=== PATIENT | male | born 1950 | race Caucasian/White ===

== ENCOUNTER 2017-05-06 21:25 | Inpatient (IN) ==
[2017-05-06] MEDS ORDERED: LACTATED RINGERS 1,000 ML IV STA (22:00)
[2017-05-06] MEDS ORDERED: HYDROmorphone 2 MG/1 ML VIAL IV STA (22:00)
[2017-05-06] MEDS ORDERED: ONDANSETRON 4 MG/2 ML VIAL IV STA (22:00)
[2017-05-06] MEDS ORDERED: ONDANSETRON 4 MG/2 ML VIAL ONE (22:05)
[2017-05-06] MEDS ORDERED: HYDROmorphone 2 MG/1 ML VIAL ONE (22:05)
[2017-05-06 22:45] LABS: Basophils % 0.2 % (0.0-0.8); Eosinophils % 0.1 % (0.00-10.9); Hematocrit 45.2 VOL% (42.0-52.0); Hemoglobin 14.8 GM/DL (14.0-18.0); Immature Granulocytes % 0.7 %; Immature Granulocytes Absolute 0.13 #; Lymphocytes # 0.8 10*3/uL (1.4-4.0); Lymphocytes % 4.7 % (21.2-54.2); Mean Corpuscular HGB Conc 32.7 GM/DL (32-36); Mean Corpuscular Hemoglobin 30 PG (27-34); Mean Corpuscular Volume 90.2 FL (87-102); Mean Platelet Volume 12.3 FL (9.6-12.0); Monocytes # 0.8 10*3/uL (0.11-0.8); Monocytes % 4.3 % (1.7-12.7); Neutrophils # 15.8 10*3/uL (1.4-7.4); Platelet Count 108 T/CUMM (130-400); Red Blood Count 5.01 MC/CUMM (3.8-5.5); Red Cell Distribution Width 12.8 % (9.3-17.3); White Blood Count 17.5 T/CUMM (4-12)
[2017-05-06] MEDS ORDERED: SODIUM CHLORIDE 0.9% 1,000 ML IV STA (22:50)
[2017-05-06 22:56] LABS: PT Patient Result 10.1 SECS; Partial Thromboplastin Time 23.1 SECS (0-40)
[2017-05-06 23:01] LABS: ABG HCO3 21.5 MMOL/L (20-26); ABG Oxygen Saturation 96.6 % (95-100); ABG PH 7.383 (7.35-7.45); ABG PO2 90.5 MM HG (80-95); ABG TCO2 22.7 MMOL/L (23-27); Allen Test Positive
[2017-05-06 23:12] LABS: Alanine Aminotransferase 35 U/L (16-61); Alkaline Phosphatase 116 U/L (45-117); Aspartate Amino Transferase 28 U/L (0-37); Calcium 9.2 MG/DL (8.5-10.1)
[2017-05-06 23:13] LABS: Amylase 47 U/L (25-115); Blood Urea Nitrogen 19 MG/DL (7-18); Glucose 356 MG/DL (74-106); Potassium 4.5 MMOL/L (3.5-5.1); Sodium 136 MMOL/L (136-145)
[2017-05-06] MEDS ORDERED: ACETAMINOPHEN 325 MG TABLET PO PRN (23:19)
[2017-05-06] MEDS ORDERED: DEXTROSE 50% 25 GM/50 ML VIAL IV PRN (23:19)
[2017-05-06] MEDS ORDERED: GLUCAGON 1 MG VIAL IM PRN (23:19)
[2017-05-07] MEDS ORDERED: SODIUM CHLORIDE 0.9% 1,000 ML IV STA (00:21)
[2017-05-07] MEDS: SODIUM CHLORIDE 0.9% 1,000 ML IV SCH ×3 (00:38→09:09)
[2017-05-07 02:02] LABS: Apearance,Urine CLEAR (Clear); Bilirubin,Urine Negative (Negative); Blood, Urine Negative (Negative); Glucose,Urine (UA) >=500 mg/dL (Negative); Ketones,Urine 5 mg/dL (Negative); Nitrite,Urine Negative (Negative); Protein,Urine Negative; RBC,Urine <1 /HPF (0-4); Urine Color Straw (Yellow); Urine Specific Gravity 1.029 (1.001-1.035); Urine Urobilinogen < 2.0 EU/DL (0.2-1.0); WBC,Urine <1 /HPF (0-6)
[2017-05-07 02:12] LABS: Barbiturates Screen,Urine Negative (Negative); Benzodiazepines Screen,Urine Negative (Negative); Cannabinoid Screen,Urine Negative (Negative); Opiate Screen,Urine Positive (Negative); Phencyclidine Screen,Urine Negative (Negative)
[2017-05-07] MEDS: HYDROmorphone 2 MG/1 ML VIAL IV PRN ×2 (03:15→09:06)
[2017-05-07 07:58] LABS: Basophils % 0.2 % (0.0-0.8); Eosinophils % 0.1 % (0.00-10.9); Hematocrit 40.7 VOL% (42.0-52.0); Hemoglobin 13.9 GM/DL (14.0-18.0); Immature Granulocytes % 0.4 %; Immature Granulocytes Absolute 0.04 #; Lymphocytes # 1.2 10*3/uL (1.4-4.0); Mean Corpuscular HGB Conc 34.2 GM/DL (32-36); Mean Corpuscular Hemoglobin 30 PG (27-34); Mean Corpuscular Volume 88.5 FL (87-102); Mean Platelet Volume 12.2 FL (9.6-12.0); Monocytes # 0.8 10*3/uL (0.11-0.8); Monocytes % 7.1 % (1.7-12.7); Neutrophils # 8.9 10*3/uL (1.4-7.4); Neutrophils % 81.2 % (38.7-73.9); Platelet Count 202 T/CUMM (130-400); Red Cell Distribution Width 13.1 % (9.3-17.3); White Blood Count 10.9 T/CUMM (4-12)
[2017-05-07] MEDS: INSULIN LISPRO 100 UNIT/ML SUBCUT SCH ×4 (08:09→21:16)
[2017-05-07] MEDS: PANTOPRAZOLE 40 MG TABLET PO SCH (08:09)
[2017-05-07] MEDS: ONDANSETRON 4 MG/2 ML VIAL IV PRN ×2 (09:08→23:10)
[2017-05-07] MEDS: INSULIN NPH/REGULAR 70/30 100 UNIT/ML SUBCUT SCH (17:13)
[2017-05-07] MEDS: ASPIRIN CHEW 81 MG TABLET PO SCH ×2 (21:16→21:21)
[2017-05-07] MEDS: LISINOPRIL 10 MG TABLET PO SCH (21:16)
[2017-05-08] MEDS: HYDROmorphone 2 MG/1 ML VIAL IV PRN ×2 (00:45→21:18)
[2017-05-08 03:36] LABS: Osmolality,Calculated 283.5 MOS/KG (273-304); Potassium 4.7 MMOL/L (3.5-5.1)
[2017-05-08] MEDS: INSULIN LISPRO 100 UNIT/ML SUBCUT SCH ×4 (08:32→21:09)
[2017-05-08] MEDS: INSULIN NPH/REGULAR 70/30 100 UNIT/ML SUBCUT SCH ×2 (08:32→16:08)
[2017-05-08] MEDS: PANTOPRAZOLE 40 MG TABLET PO SCH ×2 (08:50→19:50)
[2017-05-08] MEDS: ONDANSETRON 4 MG/2 ML VIAL IV PRN ×2 (09:02→18:02)
[2017-05-08] MEDS ORDERED: MAGNESIUM HYDROXIDE SUSP 30 ML UDCUP PO ONE (11:18)
[2017-05-08] MEDS ORDERED: INSULIN NPH/REGULAR 70/30 100 UNIT/ML SUBCUT SCH (11:30)
[2017-05-08 11:54] LABS: Basophils % 0.2 % (0.0-0.8); Eosinophils % 0.1 % (0.00-10.9); Hematocrit 44.2 VOL% (42.0-52.0); Immature Granulocytes Absolute 0.16 #; Lymphocytes # 0.9 10*3/uL (1.4-4.0); Lymphocytes % 5.6 % (21.2-54.2); Mean Corpuscular HGB Conc 31.7 GM/DL (32-36); Mean Corpuscular Hemoglobin 30 PG (27-34); Mean Corpuscular Volume 93.4 FL (87-102); Mean Platelet Volume 12.6 FL (9.6-12.0); Monocytes # 0.7 10*3/uL (0.11-0.8); Monocytes % 4.6 % (1.7-12.7); Neutrophils # 13.6 10*3/uL (1.4-7.4); Neutrophils % 88.5 % (38.7-73.9); Platelet Count 212 T/CUMM (130-400); Red Blood Count 4.73 MC/CUMM (3.8-5.5); Red Cell Distribution Width 12.9 % (9.3-17.3); White Blood Count 15.4 T/CUMM (4-12)
[2017-05-08 12:13] LABS: Calcium 8.4 MG/DL (8.5-10.1); Potassium 5.1 MMOL/L (3.5-5.1)
[2017-05-08] MEDS: LISINOPRIL 10 MG TABLET PO SCH (21:10)
[2017-05-08] MEDS: ASPIRIN CHEW 81 MG TABLET PO SCH (21:10)
[2017-05-09 08:33] LABS: Basophils % 0.1 % (0.0-0.8); Hematocrit 47.5 VOL% (42.0-52.0); Hemoglobin 14.9 GM/DL (14.0-18.0); Immature Granulocytes % 0.8 %; Immature Granulocytes Absolute 0.15 #; Lymphocytes # 0.5 10*3/uL (1.4-4.0); Lymphocytes % 2.5 % (21.2-54.2); Mean Corpuscular HGB Conc 31.4 GM/DL (32-36); Mean Corpuscular Hemoglobin 29 PG (27-34); Mean Corpuscular Volume 93.5 FL (87-102); Mean Platelet Volume 12.2 FL (9.6-12.0); Monocytes # 0.7 10*3/uL (0.11-0.8); Monocytes % 3.9 % (1.7-12.7); Neutrophils # 17.6 10*3/uL (1.4-7.4); Neutrophils % 92.7 % (38.7-73.9); Platelet Count 297 T/CUMM (130-400); Red Blood Count 5.08 MC/CUMM (3.8-5.5); Red Cell Distribution Width 13.1 % (9.3-17.3)
[2017-05-09] MEDS: PANTOPRAZOLE 40 MG TABLET PO SCH (08:38)
[2017-05-09] MEDS: INSULIN LISPRO 100 UNIT/ML SUBCUT SCH ×5 (08:38→23:51)
[2017-05-09] MEDS: INSULIN NPH/REGULAR 70/30 100 UNIT/ML SUBCUT SCH (08:38)
[2017-05-09 09:20] LABS: Albumin 3.8 G/DL (3.4-5.0); Bilirubin,Total 0.7 MG/DL (0.2-1.0); Calcium 9.1 MG/DL (8.5-10.1); Osmolality,Calculated 296.8 MOS/KG (273-304); Potassium 5.8 MMOL/L (3.5-5.1); Total Protein 7.3 G/DL (6.4-8.3)
[2017-05-09] MEDS ORDERED: MEPERIDINE 50 MG/1 ML VIAL IV PRN (11:04)
[2017-05-09] MEDS ORDERED: MEPERIDINE 25 MG/1 ML VIAL IV PRN (11:04)
[2017-05-09] MEDS ORDERED: PROMETHAZINE 25 MG/1 ML VIAL IM PRN (11:08)
[2017-05-09] MEDS ORDERED: ONDANSETRON 4 MG/2 ML VIAL IV PRN ×2 (11:08)
[2017-05-09] MEDS: ONDANSETRON 4 MG/2 ML VIAL IV PRN (11:11)
[2017-05-09] MEDS: HYDROmorphone 2 MG/1 ML VIAL IV PRN (11:11)
[2017-05-09] MEDS: SODIUM CHLORIDE 0.9% 1,000 ML IV SCH ×2 (11:14→20:09)
[2017-05-09] MEDS ORDERED: SODIUM CHLORIDE 0.9% 1,000 ML IV ONE ×2 (11:36→14:32)
[2017-05-09] MEDS ORDERED: METOCLOPRAMIDE 10 MG/2 ML VIAL IV PRN (13:16)
[2017-05-09] MEDS: cefTRIAXone 1,000 MG in SYRINGE 1 EACH IV SCH (13:28)
[2017-05-09] MEDS ORDERED: INSULIN REGULAR 100 UNIT/ML IV ONE (14:33)
[2017-05-09] MEDS: ALBUTEROL/IPRATROPIUM 3 ML NEB RESP TX SCH ×2 (14:43→20:25)
[2017-05-09] MEDS: AZITHROMYCIN INJ 500 MG in SODIUM CHLORIDE 0.9% 250 ML IV SCH (14:50)
[2017-05-09 16:52] LABS: Calcium 8.5 MG/DL (8.5-10.1); Osmolality,Calculated 299.1 MOS/KG (273-304); Potassium 4.7 MMOL/L (3.5-5.1)
[2017-05-09] MEDS: oxyCODONE/ACETAMINOPHEN 5-325 MG TABLET PO PRN ×2 (17:54→23:47)
[2017-05-09] MEDS: ASPIRIN CHEW 81 MG TABLET PO SCH (20:35)
[2017-05-10] MEDS: ALBUTEROL/IPRATROPIUM 3 ML NEB RESP TX SCH ×6 (00:45→19:10)
[2017-05-10] MEDS: SODIUM CHLORIDE 0.9% 1,000 ML IV SCH ×4 (02:16→23:32)
[2017-05-10] MEDS: INSULIN LISPRO 100 UNIT/ML SUBCUT SCH ×5 (05:27→20:38)
[2017-05-10 06:52] LABS: Basophils % 0.2 % (0.0-0.8); Eosinophils % 0.1 % (0.00-10.9); Hematocrit 39.1 VOL% (42.0-52.0); Hemoglobin 12.6 GM/DL (14.0-18.0); Immature Granulocytes % 0.5 %; Immature Granulocytes Absolute 0.06 #; Lymphocytes # 1.1 10*3/uL (1.4-4.0); Lymphocytes % 10.3 % (21.2-54.2); Mean Corpuscular HGB Conc 32.2 GM/DL (32-36); Mean Corpuscular Hemoglobin 30 PG (27-34); Mean Corpuscular Volume 93.5 FL (87-102); Monocytes # 0.8 10*3/uL (0.11-0.8); Monocytes % 6.8 % (1.7-12.7); Neutrophils # 9.1 10*3/uL (1.4-7.4); Neutrophils % 82.1 % (38.7-73.9); Platelet Count 229 T/CUMM (130-400); Red Blood Count 4.18 MC/CUMM (3.8-5.5); Red Cell Distribution Width 13.2 % (9.3-17.3); White Blood Count 11.1 T/CUMM (4-12)
[2017-05-10 07:24] LABS: Calcium 7.6 MG/DL (8.5-10.1); Osmolality,Calculated 291.1 MOS/KG (273-304)
[2017-05-10] MEDS: PANTOPRAZOLE 40 MG TABLET PO SCH (09:32)
[2017-05-10] MEDS: oxyCODONE/ACETAMINOPHEN 5-325 MG TABLET PO PRN ×3 (09:33→20:39)
[2017-05-10] MEDS: cefTRIAXone 1,000 MG in SYRINGE 1 EACH IV SCH (12:09)
[2017-05-10] MEDS: AZITHROMYCIN INJ 500 MG in SODIUM CHLORIDE 0.9% 250 ML IV SCH (14:26)
[2017-05-10] MEDS: ASPIRIN CHEW 81 MG TABLET PO SCH (20:39)
[2017-05-11] MEDS: ALBUTEROL/IPRATROPIUM 3 ML NEB RESP TX SCH ×7 (00:38→23:10)
[2017-05-11] MEDS: INSULIN LISPRO 100 UNIT/ML SUBCUT SCH ×6 (00:45→20:37)
[2017-05-11] MEDS: oxyCODONE/ACETAMINOPHEN 5-325 MG TABLET PO PRN ×3 (01:30→20:37)
[2017-05-11 05:13] LABS: Basophils % 0.4 % (0.0-0.8); Eosinophils # 0.1 10*3/uL (0.0-0.87); Eosinophils % 1.1 % (0.00-10.9); Hematocrit 38.5 VOL% (42.0-52.0); Hemoglobin 12.8 GM/DL (14.0-18.0); Immature Granulocytes % 0.5 %; Immature Granulocytes Absolute 0.04 #; Lymphocytes # 1.2 10*3/uL (1.4-4.0); Lymphocytes % 15.1 % (21.2-54.2); Mean Corpuscular HGB Conc 33.2 GM/DL (32-36); Mean Corpuscular Hemoglobin 30 PG (27-34); Mean Platelet Volume 11.7 FL (9.6-12.0); Monocytes # 0.7 10*3/uL (0.11-0.8); Monocytes % 8.9 % (1.7-12.7); Platelet Count 217 T/CUMM (130-400); Red Blood Count 4.28 MC/CUMM (3.8-5.5); Red Cell Distribution Width 13.1 % (9.3-17.3); White Blood Count 8.1 T/CUMM (4-12)
[2017-05-11 05:43] LABS: Calcium 7.5 MG/DL (8.5-10.1); Osmolality,Calculated 285.5 MOS/KG (273-304); Potassium 4.4 MMOL/L (3.5-5.1)
[2017-05-11] MEDS: SODIUM CHLORIDE 0.9% 1,000 ML IV SCH ×4 (07:35→20:37)
[2017-05-11] MEDS: PANTOPRAZOLE 40 MG TABLET PO SCH (09:48)
[2017-05-11] MEDS: AZITHROMYCIN 250 MG TABLET PO SCH (09:48)
[2017-05-11] MEDS: hydrALAZINE 20 MG/1 ML VIAL IV PRN (13:19)
[2017-05-11] MEDS: cefTRIAXone 1,000 MG in SYRINGE 1 EACH IV SCH (13:24)
[2017-05-11] MEDS ORDERED: INSULIN LISPRO PROTAMINE/LISPRO 75/25 100 UNIT/ML SUBCUT SCH (16:30)
[2017-05-11] MEDS: INSULIN NPH/REGULAR 70/30 100 UNIT/ML SUBCUT SCH (17:28)
[2017-05-11] MEDS: ASPIRIN CHEW 81 MG TABLET PO SCH (20:35)
[2017-05-11] MEDS: LISINOPRIL 10 MG TABLET PO SCH (20:35)
[2017-05-11] MEDS: LIDOCAINE 5% PATCH TRANSDERM SCH (20:39)
[2017-05-11] MEDS ORDERED: ENOXAPARIN 40 MG/0.4 ML SYRINGE SUBCUT SCH (21:00)
[2017-05-12] MEDS: INSULIN LISPRO 100 UNIT/ML SUBCUT SCH ×6 (00:22→20:58)
[2017-05-12] MEDS: hydrALAZINE 20 MG/1 ML VIAL IV PRN ×2 (00:41→09:31)
[2017-05-12] MEDS: ALBUTEROL/IPRATROPIUM 3 ML NEB RESP TX SCH ×6 (03:11→23:00)
[2017-05-12 06:23] LABS: Calcium 7.9 MG/DL (8.5-10.1); Osmolality,Calculated 283.5 MOS/KG (273-304); Potassium 4.6 MMOL/L (3.5-5.1)
[2017-05-12] MEDS ORDERED: INSULIN LISPRO PROTAMINE/LISPRO 75/25 100 UNIT/ML SUBCUT SCH (07:30)
[2017-05-12] MEDS: SODIUM CHLORIDE 0.9% 1,000 ML IV SCH ×3 (08:07→20:04)
[2017-05-12] MEDS: INSULIN NPH/REGULAR 70/30 100 UNIT/ML SUBCUT SCH ×2 (08:10→17:09)
[2017-05-12] MEDS: PANTOPRAZOLE 40 MG TABLET PO SCH (09:34)
[2017-05-12] MEDS: AZITHROMYCIN 250 MG TABLET PO SCH (09:34)
[2017-05-12] MEDS: LIDOCAINE 5% PATCH TRANSDERM SCH (09:34)
[2017-05-12 10:44] LABS: Troponin I Only 0.787 NG/ML (0.00-0.045)
[2017-05-12] MEDS ORDERED: MORPHINE 2 MG/1 ML SYRINGE IV ONE (11:11)
[2017-05-12] MEDS ORDERED: NITROGLYCERIN 2% OINT 1 INCH/GM PACK TOP ONE (11:11)
[2017-05-12] MEDS ORDERED: ASPIRIN CHEW 81 MG TABLET PO ONE (11:12)
[2017-05-12] MEDS ORDERED: ENOXAPARIN 100 MG/ML SYRINGE SUBCUT ONE (11:37)
[2017-05-12] MEDS ORDERED: DIAZEPAM 5 MG TABLET PO ONE (11:41)
[2017-05-12] MEDS ORDERED: POTASSIUM CHLORIDE RIDER 10 MEQ in PREMIX 1 EACH IV PRN ×2 (11:41→15:28)
[2017-05-12] MEDS ORDERED: MAGNESIUM SULF RIDER 2 GM in PREMIX 1 EACH IV PRN ×2 (11:41→15:28)
[2017-05-12] MEDS ORDERED: diphenhydrAMINE CAP 25 MG CAPSULE PO ONE (11:41)
[2017-05-12] MEDS ORDERED: CARVEDILOL 6.25 MG TABLET PO SCH ×2 (12:30→17:30)
[2017-05-12] MEDS: cefTRIAXone 1,000 MG in SYRINGE 1 EACH IV SCH (13:04)
[2017-05-12 13:51] LABS: Troponin I Only 0.594 NG/ML (0.00-0.045)
[2017-05-12] MEDS ORDERED: LIDOCAINE 1% 20 ML VIAL ONE (15:55)
[2017-05-12] MEDS ORDERED: MEPERIDINE 25 MG/1 ML VIAL ONE (15:58)
[2017-05-12] MEDS ORDERED: MIDAZOLAM 2 MG/2 ML VIAL ONE (15:59)
[2017-05-12] MEDS ORDERED: ZALEPLON 5 MG CAPSULE PO PRN (17:04)
[2017-05-12] MEDS ORDERED: NITROGLYCERIN SL 0.4 MG TABLET SL PRN (17:04)
[2017-05-12] MEDS ORDERED: BISOPROLOL 5 MG TABLET PO ONE (17:22)
[2017-05-12 18:00] LABS: Troponin I Only 0.732 NG/ML (0.00-0.045)
[2017-05-12] MEDS: NITROGLYCERIN 2% OINT 1 INCH/GM PACK TOP SCH (19:04)
[2017-05-12] MEDS: LISINOPRIL 10 MG TABLET PO SCH (21:11)
[2017-05-12] MEDS: BISOPROLOL 5 MG TABLET PO SCH (21:12)
[2017-05-12] MEDS: oxyCODONE/ACETAMINOPHEN 5-325 MG TABLET PO PRN (21:12)
[2017-05-13] MEDS: NITROGLYCERIN 2% OINT 1 INCH/GM PACK TOP SCH ×5 (00:36→23:17)
[2017-05-13] MEDS: INSULIN LISPRO 100 UNIT/ML SUBCUT SCH ×5 (00:36→17:20)
[2017-05-13 01:28] LABS: Basophils # 0.1 10*3/uL (0.0-0.2); Basophils % 0.4 % (0.0-0.8); Eosinophils # 0.1 10*3/uL (0.0-0.87); Eosinophils % 0.6 % (0.00-10.9); Hematocrit 45.7 VOL% (42.0-52.0); Hemoglobin 14.6 GM/DL (14.0-18.0); Immature Granulocytes % 0.7 %; Lymphocytes # 1.1 10*3/uL (1.4-4.0); Lymphocytes % 7.4 % (21.2-54.2); Mean Corpuscular HGB Conc 31.9 GM/DL (32-36); Mean Corpuscular Hemoglobin 29 PG (27-34); Mean Corpuscular Volume 92.1 FL (87-102); Mean Platelet Volume 11.1 FL (9.6-12.0); Monocytes # 0.6 10*3/uL (0.11-0.8); Neutrophils % 86.9 % (38.7-73.9); Platelet Count 351 T/CUMM (130-400); Red Blood Count 4.96 MC/CUMM (3.8-5.5); Red Cell Distribution Width 12.9 % (9.3-17.3); White Blood Count 14.9 T/CUMM (4-12)
[2017-05-13 02:03] LABS: Calcium 8.6 MG/DL (8.5-10.1); Osmolality,Calculated 287.8 MOS/KG (273-304); Potassium 5.4 MMOL/L (3.5-5.1)
[2017-05-13 02:09] LABS: Risk Ratio 5.29
[2017-05-13 02:20] LABS: Troponin I Only 0.668 NG/ML (0.00-0.045)
[2017-05-13] MEDS: ALBUTEROL/IPRATROPIUM 3 ML NEB RESP TX SCH ×5 (07:11→23:25)
[2017-05-13] MEDS: AZITHROMYCIN 250 MG TABLET PO SCH (08:25)
[2017-05-13] MEDS: BISOPROLOL 5 MG TABLET PO SCH ×2 (08:26→20:21)
[2017-05-13] MEDS: PANTOPRAZOLE 40 MG TABLET PO SCH (08:27)
[2017-05-13] MEDS: ASPIRIN CHEW 81 MG TABLET PO SCH (08:27)
[2017-05-13] MEDS: ENOXAPARIN 80 MG/0.8 ML SYRINGE SUBCUT SCH ×2 (08:28→20:21)
[2017-05-13] MEDS: INSULIN NPH/REGULAR 70/30 100 UNIT/ML SUBCUT SCH ×2 (08:28→17:20)
[2017-05-13] MEDS: LIDOCAINE 5% PATCH TRANSDERM SCH (08:29)
[2017-05-13] MEDS ORDERED: SODIUM PHOSPHATE ENEMA 133 ML BOTTLE RECTAL ONE (09:30)
[2017-05-13 11:08] LABS: Bilirubin,Direct 0.16 MG/DL (0.0-0.20); Bilirubin,Indirect 0.4 MG/DL (0.0-1.0); Bilirubin,Total 0.6 MG/DL (0.2-1.0); Total Protein 6.4 G/DL (6.4-8.3)
[2017-05-13] MEDS: cefTRIAXone 1,000 MG in SYRINGE 1 EACH IV SCH (13:10)
[2017-05-13] MEDS: oxyCODONE/ACETAMINOPHEN 5-325 MG TABLET PO PRN ×2 (20:25→20:32)
[2017-05-13] MEDS: LISINOPRIL 10 MG TABLET PO SCH (20:25)
[2017-05-13] MEDS: ROSUVASTATIN 10 MG TABLET PO SCH (20:25)
[2017-05-13 22:43] LABS: Apearance,Urine CLEAR (Clear); Bilirubin,Urine Negative (Negative); Blood, Urine Negative (Negative); Glucose,Urine (UA) >=500 mg/dL (Negative); Ketones,Urine 20 mg/dL (Negative); Nitrite,Urine Negative (Negative); Protein,Urine Negative; RBC,Urine <1 /HPF (0-4); Urine Color Yellow (Yellow); Urine Specific Gravity 1.015 (1.001-1.035); Urine Urobilinogen < 2.0 EU/DL (0.2-1.0); WBC,Urine <1 /HPF (0-6)
[2017-05-14] MEDS: INSULIN LISPRO 100 UNIT/ML SUBCUT SCH ×7 (01:36→21:34)
[2017-05-14] MEDS: ALBUTEROL/IPRATROPIUM 3 ML NEB RESP TX SCH ×7 (03:32→23:29)
[2017-05-14 05:20] LABS: Basophils % 0.4 % (0.0-0.8); Eosinophils # 0.2 10*3/uL (0.0-0.87); Eosinophils % 2.4 % (0.00-10.9); Hematocrit 36.8 VOL% (42.0-52.0); Hemoglobin 12.6 GM/DL (14.0-18.0); Immature Granulocytes % 0.7 %; Immature Granulocytes Absolute 0.06 #; Lymphocytes # 1.7 10*3/uL (1.4-4.0); Lymphocytes % 20.1 % (21.2-54.2); Mean Corpuscular HGB Conc 34.2 GM/DL (32-36); Mean Corpuscular Hemoglobin 30 PG (27-34); Mean Corpuscular Volume 87.8 FL (87-102); Mean Platelet Volume 11.5 FL (9.6-12.0); Monocytes # 0.7 10*3/uL (0.11-0.8); Monocytes % 8.8 % (1.7-12.7); Neutrophils # 5.6 10*3/uL (1.4-7.4); Neutrophils % 67.6 % (38.7-73.9); Platelet Count 290 T/CUMM (130-400); Red Blood Count 4.19 MC/CUMM (3.8-5.5); Red Cell Distribution Width 12.9 % (9.3-17.3); White Blood Count 8.3 T/CUMM (4-12)
[2017-05-14 05:54] LABS: Calcium 8.5 MG/DL (8.5-10.1); Osmolality,Calculated 287.4 MOS/KG (273-304); Potassium 4.2 MMOL/L (3.5-5.1)
[2017-05-14] MEDS: NITROGLYCERIN 2% OINT 1 INCH/GM PACK TOP SCH ×3 (06:11→18:06)
[2017-05-14] MEDS ORDERED: NALOXONE 0.4 MG/ML VIAL IV PRN (06:34)
[2017-05-14] MEDS: INSULIN NPH/REGULAR 70/30 100 UNIT/ML SUBCUT SCH ×2 (07:46→18:06)
[2017-05-14] MEDS: AZITHROMYCIN 250 MG TABLET PO SCH (09:45)
[2017-05-14] MEDS: LIDOCAINE 5% PATCH TRANSDERM SCH (09:45)
[2017-05-14] MEDS: KETOROLAC 15 MG/1 ML VIAL IV SCH ×3 (09:45→19:31)
[2017-05-14] MEDS: BISOPROLOL 5 MG TABLET PO SCH ×2 (09:46→21:36)
[2017-05-14] MEDS: ASPIRIN CHEW 81 MG TABLET PO SCH (09:46)
[2017-05-14] MEDS: PANTOPRAZOLE 40 MG TABLET PO SCH (09:46)
[2017-05-14] MEDS: ENOXAPARIN 80 MG/0.8 ML SYRINGE SUBCUT SCH ×2 (09:46→21:36)
[2017-05-14] MEDS: DOCUSATE SODIUM 100 MG CAPSULE PO SCH ×2 (09:47→21:34)
[2017-05-14] MEDS: cefTRIAXone 1,000 MG in SYRINGE 1 EACH IV SCH (12:21)
[2017-05-14] MEDS ORDERED: INSULIN NPH/REGULAR 70/30 100 UNIT/ML SUBCUT SCH (14:12)
[2017-05-14] MEDS ORDERED: CALCIUM CARBONATE CHEW 500 MG TABLET PO PRN (14:21)
[2017-05-14] MEDS ORDERED: ZINC OXIDE PASTE 113 GM TUBE TOP PRN (15:14)
[2017-05-14] MEDS: LISINOPRIL 10 MG TABLET PO SCH (21:35)
[2017-05-14] MEDS: ROSUVASTATIN 10 MG TABLET PO SCH (21:35)
[2017-05-15] MEDS: INSULIN LISPRO 100 UNIT/ML SUBCUT SCH ×6 (00:26→21:42)
[2017-05-15] MEDS: NITROGLYCERIN 2% OINT 1 INCH/GM PACK TOP SCH ×4 (00:26→18:43)
[2017-05-15] MEDS: KETOROLAC 15 MG/1 ML VIAL IV SCH ×4 (00:27→21:41)
[2017-05-15] MEDS: ALBUTEROL/IPRATROPIUM 3 ML NEB RESP TX SCH ×6 (02:47→23:53)
[2017-05-15 06:17] LABS: Basophils % 0.6 % (0.0-0.8); Eosinophils # 0.2 10*3/uL (0.0-0.87); Eosinophils % 3.2 % (0.00-10.9); Hematocrit 37.6 VOL% (42.0-52.0); Hemoglobin 12.7 GM/DL (14.0-18.0); Immature Granulocytes % 0.6 %; Immature Granulocytes Absolute 0.04 #; Lymphocytes # 1.3 10*3/uL (1.4-4.0); Mean Corpuscular HGB Conc 33.8 GM/DL (32-36); Mean Corpuscular Hemoglobin 30 PG (27-34); Mean Corpuscular Volume 89.1 FL (87-102); Mean Platelet Volume 11.7 FL (9.6-12.0); Monocytes # 0.8 10*3/uL (0.11-0.8); Monocytes % 11.8 % (1.7-12.7); Neutrophils # 4.6 10*3/uL (1.4-7.4); Neutrophils % 65.8 % (38.7-73.9); Platelet Count 276 T/CUMM (130-400); Red Blood Count 4.22 MC/CUMM (3.8-5.5); Red Cell Distribution Width 12.5 % (9.3-17.3)
[2017-05-15 06:51] LABS: Calcium 8.6 MG/DL (8.5-10.1); Osmolality,Calculated 285.7 MOS/KG (273-304); Potassium 4.5 MMOL/L (3.5-5.1)
[2017-05-15] MEDS: ENOXAPARIN 80 MG/0.8 ML SYRINGE SUBCUT SCH ×2 (09:30→21:43)
[2017-05-15] MEDS: AZITHROMYCIN 250 MG TABLET PO SCH (09:31)
[2017-05-15] MEDS: DOCUSATE SODIUM 100 MG CAPSULE PO SCH ×2 (09:31→21:40)
[2017-05-15] MEDS: PANTOPRAZOLE 40 MG TABLET PO SCH (09:31)
[2017-05-15] MEDS: BISOPROLOL 5 MG TABLET PO SCH ×2 (09:31→21:41)
[2017-05-15] MEDS: ASPIRIN CHEW 81 MG TABLET PO SCH (09:31)
[2017-05-15] MEDS: LIDOCAINE 5% PATCH TRANSDERM SCH (09:33)
[2017-05-15] MEDS: cefTRIAXone 1,000 MG in SYRINGE 1 EACH IV SCH (13:56)
[2017-05-15] MEDS ORDERED: INSULIN NPH/REGULAR 70/30 100 UNIT/ML SUBCUT SCH (16:27)
[2017-05-15] MEDS: INSULIN NPH/REGULAR 70/30 100 UNIT/ML SUBCUT SCH (16:57)
[2017-05-15] MEDS: LISINOPRIL 10 MG TABLET PO SCH (21:40)
[2017-05-15] MEDS: ROSUVASTATIN 10 MG TABLET PO SCH (21:40)
[2017-05-16] MEDS: INSULIN LISPRO 100 UNIT/ML SUBCUT SCH ×6 (00:22→21:53)
[2017-05-16] MEDS: NITROGLYCERIN 2% OINT 1 INCH/GM PACK TOP SCH ×4 (00:22→17:29)
[2017-05-16] MEDS: KETOROLAC 15 MG/1 ML VIAL IV SCH (00:28)
[2017-05-16] MEDS: ALBUTEROL/IPRATROPIUM 3 ML NEB RESP TX SCH ×4 (03:28→16:20)
[2017-05-16 05:18] LABS: Basophils % 0.6 % (0.0-0.8); Eosinophils # 0.3 10*3/uL (0.0-0.87); Eosinophils % 3.5 % (0.00-10.9); Hematocrit 35.4 VOL% (42.0-52.0); Hemoglobin 12.1 GM/DL (14.0-18.0); Immature Granulocytes % 0.4 %; Immature Granulocytes Absolute 0.03 #; Lymphocytes # 1.7 10*3/uL (1.4-4.0); Lymphocytes % 23.7 % (21.2-54.2); Mean Corpuscular HGB Conc 34.2 GM/DL (32-36); Mean Corpuscular Hemoglobin 30 PG (27-34); Mean Corpuscular Volume 86.6 FL (87-102); Monocytes # 0.8 10*3/uL (0.11-0.8); Monocytes % 11.8 % (1.7-12.7); Neutrophils # 4.3 10*3/uL (1.4-7.4); Platelet Count 283 T/CUMM (130-400); Red Blood Count 4.09 MC/CUMM (3.8-5.5); Red Cell Distribution Width 12.6 % (9.3-17.3); White Blood Count 7.1 T/CUMM (4-12)
[2017-05-16 05:43] LABS: Calcium 8.6 MG/DL (8.5-10.1); Osmolality,Calculated 285.1 MOS/KG (273-304); Potassium 3.9 MMOL/L (3.5-5.1)
[2017-05-16] MEDS: HYDROmorphone PCA 30 MG/30 ML SYRINGE IV SCH ×2 (08:57→08:58)
[2017-05-16] MEDS: ENOXAPARIN 80 MG/0.8 ML SYRINGE SUBCUT SCH ×2 (09:27→21:55)
[2017-05-16] MEDS: ASPIRIN CHEW 81 MG TABLET PO SCH (09:27)
[2017-05-16] MEDS: PANTOPRAZOLE 40 MG TABLET PO SCH (09:28)
[2017-05-16] MEDS: DOCUSATE SODIUM 100 MG CAPSULE PO SCH ×2 (09:28→21:54)
[2017-05-16] MEDS: BISOPROLOL 5 MG TABLET PO SCH ×2 (09:28→21:54)
[2017-05-16] MEDS: AZITHROMYCIN 250 MG TABLET PO SCH (09:28)
[2017-05-16] MEDS: LIDOCAINE 5% PATCH TRANSDERM SCH (09:37)
[2017-05-16] MEDS ORDERED: METHOCARBAMOL 500 MG TABLET PO ONE (10:30)
[2017-05-16] MEDS ORDERED: METHOCARBAMOL 500 MG TABLET PO SCH (10:30)
[2017-05-16] MEDS: cefTRIAXone 1,000 MG in SYRINGE 1 EACH IV SCH (12:03)
[2017-05-16] MEDS: INSULIN NPH/REGULAR 70/30 100 UNIT/ML SUBCUT SCH (17:29)
[2017-05-16] MEDS: LISINOPRIL 10 MG TABLET PO SCH (21:53)
[2017-05-16] MEDS: ROSUVASTATIN 10 MG TABLET PO SCH (21:54)
[2017-05-17] MEDS: ALBUTEROL/IPRATROPIUM 3 ML NEB RESP TX SCH ×4 (00:12→23:02)
[2017-05-17] MEDS: INSULIN LISPRO 100 UNIT/ML SUBCUT SCH ×6 (01:05→22:04)
[2017-05-17] MEDS: NITROGLYCERIN 2% OINT 1 INCH/GM PACK TOP SCH ×4 (01:12→18:23)
[2017-05-17] MEDS: METHOCARBAMOL 500 MG TABLET PO PRN (04:18)
[2017-05-17 05:26] LABS: Basophils # 0.1 10*3/uL (0.0-0.2); Basophils % 0.7 % (0.0-0.8); Eosinophils # 0.3 10*3/uL (0.0-0.87); Eosinophils % 3.8 % (0.00-10.9); Hematocrit 38.8 VOL% (42.0-52.0); Hemoglobin 13.3 GM/DL (14.0-18.0); Immature Granulocytes % 0.9 %; Immature Granulocytes Absolute 0.07 #; Lymphocytes # 1.7 10*3/uL (1.4-4.0); Lymphocytes % 21.9 % (21.2-54.2); Mean Corpuscular HGB Conc 34.3 GM/DL (32-36); Mean Corpuscular Hemoglobin 30 PG (27-34); Mean Platelet Volume 12.1 FL (9.6-12.0); Monocytes # 0.8 10*3/uL (0.11-0.8); Monocytes % 10.2 % (1.7-12.7); Neutrophils # 4.8 10*3/uL (1.4-7.4); Neutrophils % 62.5 % (38.7-73.9); Platelet Count 312 T/CUMM (130-400); Red Blood Count 4.46 MC/CUMM (3.8-5.5); Red Cell Distribution Width 12.7 % (9.3-17.3); White Blood Count 7.7 T/CUMM (4-12)
[2017-05-17 05:59] LABS: Calcium 8.7 MG/DL (8.5-10.1); Osmolality,Calculated 285.7 MOS/KG (273-304); Potassium 4.4 MMOL/L (3.5-5.1)
[2017-05-17] MEDS: INSULIN NPH/REGULAR 70/30 100 UNIT/ML SUBCUT SCH ×2 (10:25→18:20)
[2017-05-17] MEDS: ENOXAPARIN 80 MG/0.8 ML SYRINGE SUBCUT SCH ×2 (10:26→22:02)
[2017-05-17] MEDS: LIDOCAINE 5% PATCH TRANSDERM SCH (10:27)
[2017-05-17] MEDS: BISOPROLOL 5 MG TABLET PO SCH ×2 (10:28→22:03)
[2017-05-17] MEDS: ASPIRIN CHEW 81 MG TABLET PO SCH (10:28)
[2017-05-17] MEDS: AZITHROMYCIN 250 MG TABLET PO SCH (10:29)
[2017-05-17] MEDS: PANTOPRAZOLE 40 MG TABLET PO SCH (10:29)
[2017-05-17] MEDS: DOCUSATE SODIUM 100 MG CAPSULE PO SCH ×2 (10:29→22:03)
[2017-05-17] MEDS: cefTRIAXone 1,000 MG in SYRINGE 1 EACH IV SCH (12:37)
[2017-05-17] MEDS: LISINOPRIL 10 MG TABLET PO SCH (22:03)
[2017-05-17] MEDS: ROSUVASTATIN 10 MG TABLET PO SCH (22:03)
[2017-05-18] MEDS: NITROGLYCERIN 2% OINT 1 INCH/GM PACK TOP SCH ×3 (00:04→13:12)
[2017-05-18] MEDS: METHOCARBAMOL 500 MG TABLET PO PRN (00:04)
[2017-05-18] MEDS: INSULIN LISPRO 100 UNIT/ML SUBCUT SCH ×5 (01:14→17:17)
[2017-05-18 06:22] LABS: Basophils % 0.5 % (0.0-0.8); Eosinophils # 0.2 10*3/uL (0.0-0.87); Eosinophils % 2.4 % (0.00-10.9); Hemoglobin 12.8 GM/DL (14.0-18.0); Immature Granulocytes % 0.8 %; Immature Granulocytes Absolute 0.06 #; Lymphocytes # 1.8 10*3/uL (1.4-4.0); Lymphocytes % 23.9 % (21.2-54.2); Mean Corpuscular HGB Conc 33.7 GM/DL (32-36); Mean Corpuscular Hemoglobin 29 PG (27-34); Mean Corpuscular Volume 86.2 FL (87-102); Mean Platelet Volume 12.4 FL (9.6-12.0); Monocytes # 0.9 10*3/uL (0.11-0.8); Monocytes % 11.5 % (1.7-12.7); Neutrophils # 4.6 10*3/uL (1.4-7.4); Neutrophils % 60.9 % (38.7-73.9); Platelet Count 305 T/CUMM (130-400); Red Blood Count 4.41 MC/CUMM (3.8-5.5); Red Cell Distribution Width 12.6 % (9.3-17.3); White Blood Count 7.6 T/CUMM (4-12)
[2017-05-18 06:54] LABS: Calcium 8.7 MG/DL (8.5-10.1); Osmolality,Calculated 280.3 MOS/KG (273-304)
[2017-05-18] MEDS: ALBUTEROL/IPRATROPIUM 3 ML NEB RESP TX SCH ×2 (07:12→14:42)
[2017-05-18] MEDS: ASPIRIN CHEW 81 MG TABLET PO SCH (09:26)
[2017-05-18] MEDS: PANTOPRAZOLE 40 MG TABLET PO SCH (09:27)
[2017-05-18] MEDS: DOCUSATE SODIUM 100 MG CAPSULE PO SCH (09:27)
[2017-05-18] MEDS: BISOPROLOL 5 MG TABLET PO SCH (09:27)
[2017-05-18] MEDS: AZITHROMYCIN 250 MG TABLET PO SCH (09:28)
[2017-05-18] MEDS: INSULIN NPH/REGULAR 70/30 100 UNIT/ML SUBCUT SCH ×2 (09:29→17:16)
[2017-05-18] MEDS: ENOXAPARIN 80 MG/0.8 ML SYRINGE SUBCUT SCH (09:30)
[2017-05-18] MEDS: LIDOCAINE 5% PATCH TRANSDERM SCH (09:31)
[2017-05-18] MEDS: cefTRIAXone 1,000 MG in SYRINGE 1 EACH IV SCH (13:08)
[2017-05-18] MEDS ORDERED: ROSUVASTATIN 20 MG TABLET PO SCH (14:18)
[2017-05-18 17:14] VITALS: BP 111/69
[2017-05-19] MEDS ORDERED: ISOSORBIDE MONONITRATE 30 MG TABLET PO SCH (09:00)
== END 2017-05-18 17:40 | disposition home or self-care, planned readmission (81) | DRG 199 ==
LOC: N.ED 21:25 → N.EDINP 23:19 → N.3E 05-07 00:06
PROVIDERS: ADMIT Surgery; ATTEND Surgery
PROC: CLCCHCL (ICD-10-PCS; 2017-05-12 12:45)

== ENCOUNTER 2017-05-27 07:41 | Inpatient (IN) ==
[2017-05-27 13:33] LABS: Basophils # 0.1 10*3/uL (0.0-0.2); Basophils % 1.1 % (0.0-0.8); Eosinophils # 0.3 10*3/uL (0.0-0.87); Eosinophils % 3.6 % (0.00-10.9); Hematocrit 41.4 VOL% (42.0-52.0); Hemoglobin 13.6 GM/DL (14.0-18.0); Immature Granulocytes % 0.4 %; Immature Granulocytes Absolute 0.03 #; Lymphocytes # 1.8 10*3/uL (1.4-4.0); Lymphocytes % 20.4 % (21.2-54.2); Mean Corpuscular HGB Conc 32.9 GM/DL (32-36); Mean Corpuscular Hemoglobin 30 PG (27-34); Mean Corpuscular Volume 90.6 FL (87-102); Mean Platelet Volume 11.5 FL (9.6-12.0); Monocytes # 0.8 10*3/uL (0.11-0.8); Monocytes % 9.2 % (1.7-12.7); Neutrophils # 5.6 10*3/uL (1.4-7.4); Neutrophils % 65.3 % (38.7-73.9); Platelet Count 343 T/CUMM (130-400); Red Blood Count 4.57 MC/CUMM (3.8-5.5); Red Cell Distribution Width 13.1 % (9.3-17.3); White Blood Count 8.6 T/CUMM (4-12)
[2017-05-27 14:03] LABS: Alanine Aminotransferase 25 U/L (16-61); Albumin 3.5 G/DL (3.4-5.0); Alkaline Phosphatase 141 U/L (45-117); Aspartate Amino Transferase 19 U/L (0-37); Bilirubin,Total < 0.39 MG/DL (0.2-1.0); Blood Urea Nitrogen 18 MG/DL (7-18); Calcium 9.2 MG/DL (8.5-10.1); Glucose 88 MG/DL (74-106); Osmolality,Calculated 281.3 MOS/KG (273-304); Potassium 4.9 MMOL/L (3.5-5.1); Sodium 141 MMOL/L (136-145); Total Protein 6.9 G/DL (6.4-8.3)
[2017-05-27] MEDS ORDERED: METHOCARBAMOL 500 MG TABLET PO PRN (15:37)
[2017-05-27] MEDS ORDERED: INSULIN NPH/REGULAR 70/30 100 UNIT/ML SUBCUT SCH ×2 (15:37→16:30)
[2017-05-27] MEDS ORDERED: NITROGLYCERIN SL 0.4 MG TABLET SL PRN (15:37)
[2017-05-27] MEDS: CHLORHEXIDINE 4% SOLN 118 ML BOTTLE TOP SCH ×3 (15:49→22:03)
[2017-05-27] MEDS: CHLORHEXIDINE 0.12% ORAL RINSE 60 ML BOTTLE SWISH/SPIT SCH ×3 (16:50→22:03)
[2017-05-27] MEDS ORDERED: ASPIRIN 325 MG TABLET PO SCH (21:00)
[2017-05-27] MEDS ORDERED: BISOPROLOL 5 MG TABLET PO SCH (21:00)
[2017-05-27] MEDS ORDERED: ISOSORBIDE MONONITRATE 30 MG TABLET PO SCH (21:00)
[2017-05-27] MEDS ORDERED: LISINOPRIL 10 MG TABLET PO SCH (21:00)
[2017-05-27] MEDS ORDERED: ROSUVASTATIN 20 MG TABLET PO SCH (21:00)
[2017-05-28] MEDS ORDERED: VANCOMYCIN 1,000 MG VIAL ONE (05:22)
[2017-05-28] MEDS ORDERED: PAPAVERINE 60 MG/2 ML VIAL ONE (05:22)
[2017-05-28] MEDS ORDERED: FAMOTIDINE 20 MG TABLET PO ONE (05:30)
[2017-05-28] MEDS ORDERED: DIAZEPAM 5 MG TABLET PO ONE (05:30)
[2017-05-28] MEDS ORDERED: NITROGLYCERIN SL 0.4 MG TABLET SL PRN (06:00)
[2017-05-28] MEDS ORDERED: SUFentanil 250 MCG/5 ML AMP ONE (06:02)
[2017-05-28] MEDS ORDERED: MIDAZOLAM 10 MG/2 ML VIAL ONE (06:02)
[2017-05-28] MEDS ORDERED: TRANEXAMIC ACID 1,000 MG/10 ML VIAL IV ONE (06:13)
[2017-05-28] MEDS ORDERED: CEFUROXIME INJ 1,500 MG in SYRINGE 1 EACH IV ONE (06:30)
[2017-05-28] MEDS ORDERED: SODIUM CHLORIDE 0.9% 1,000 ML IV SCH (06:30)
[2017-05-28] MEDS ORDERED: GLUCAGON 1 MG VIAL IM PRN (06:30)
[2017-05-28] MEDS ORDERED: DEXTROSE 50% 25 GM/50 ML VIAL IV PRN ×3 (06:30→12:37)
[2017-05-28 07:41] LABS: ABG Base Excess -2.4 MMOL/L (-2.5-2.5); ABG HCO3 22.4 MMOL/L (20-26); ABG PCO2 37.1 MM HG (35-48); ABG PH 7.385 (7.35-7.45); ABG TCO2 19.8 MMOL/L (23-27); Glucose Heart Surgery 126 MG/DL (74-106); Hemoglobin Heart Surgery 11.7 G/DL (14.0-18.0); Ionized Calcium Arterial 1.22 MMOL/L (1.21-1.46); PCO2 Patient Temp Arterial 37.1 MMHG; PH Patient Temp Arterial 7.385; Patient Temperature 37 CELCIUS; Potassium Heart/CVR 4.2 MMOL/L (3.5-5.1); Sodium Heart/CVR 141 MMOL/L (135-145)
[2017-05-28 07:42] LABS: ABG Oxygen Saturation 99.7 % (95-100)
[2017-05-28 08:25] LABS: Apearance,Urine CLEAR (Clear); Bilirubin,Urine Negative (Negative); Blood, Urine Negative (Negative); Glucose,Urine (UA) Negative (Negative); Ketones,Urine Negative (Negative); Nitrite,Urine Negative (Negative); Protein,Urine Negative; RBC,Urine 2 /HPF (0-4); Urine Color Straw (Yellow); Urine Specific Gravity 1.006 (1.001-1.035); Urine Urobilinogen < 2.0 EU/DL (0.2-1.0); WBC,Urine <1 /HPF (0-6)
[2017-05-28] MEDS ORDERED: NITROPRUSSIDE 50 MG/2 ML VIAL ONE (08:26)
[2017-05-28] MEDS ORDERED: PHENYLEPHRINE DRIP 40 MG/250 ML PREMIX IV ONE (08:27)
[2017-05-28] MEDS ORDERED: METHOCARBAMOL 500 MG TABLET PO PRN (09:00)
[2017-05-28] MEDS ORDERED: ISOSORBIDE MONONITRATE 30 MG TABLET PO SCH (09:00)
[2017-05-28] MEDS ORDERED: ASPIRIN 325 MG TABLET PO SCH (09:00)
[2017-05-28] MEDS ORDERED: LIDOCAINE 5% PATCH TRANSDERM SCH (09:00)
[2017-05-28 09:33] LABS: Hematocrit Heart Surgery 25.2 PERCENT (42-52); Hemoglobin Heart Surgery 8.1 G/DL (14.0-18.0); PCO2 Patient Temp Venous 35.3 MM HG; PH Patient Temp Venous 7.433; PO2 Patient Temp Venous 42.3 MM HG; VBG Base Excess -0.2 MEQ/L (0-4); VBG HCO3 24.1 MEQ/L (24-28); VBG Oxygen Saturation 87.2 %; VBG PCO2 40.9 MMHG (41-51); VBG PH 7.39; VBG PO2 51.9 MMHG (17-40)
[2017-05-28] MEDS ORDERED: BISOPROLOL 5 MG TABLET PO SCH (10:00)
[2017-05-28 10:05] LABS: Hematocrit Heart Surgery 27.6 PERCENT (42-52); Hemoglobin Heart Surgery 8.9 G/DL (14.0-18.0); PCO2 Patient Temp Venous 29.8 MM HG; PH Patient Temp Venous 7.487; PO2 Patient Temp Venous 36.3 MM HG; Potassium Heart/CVR 4.8 MMOL/L (3.5-5.1); VBG Base Excess -0.2 MEQ/L (0-4); VBG HCO3 24.1 MEQ/L (24-28); VBG Oxygen Saturation 83.4 %; VBG PCO2 34.4 MMHG (41-51); VBG PH 7.443; VBG PO2 44.7 MMHG (17-40)
[2017-05-28 10:33] LABS: Hematocrit Heart Surgery 27.5 PERCENT (42-52); Hemoglobin Heart Surgery 8.8 G/DL (14.0-18.0); PCO2 Patient Temp Venous 34.8 MM HG; PH Patient Temp Venous 7.429; PO2 Patient Temp Venous 35.3 MM HG; Potassium Heart/CVR 5.3 MMOL/L (3.5-5.1); VBG Base Excess -0.9 MEQ/L (0-4); VBG HCO3 23.3 MEQ/L (24-28); VBG Oxygen Saturation 73.7 %; VBG PCO2 36.5 MMHG (41-51); VBG PH 7.415; VBG PO2 37.9 MMHG (17-40)
[2017-05-28 10:44] LABS: PCO2 Patient Temp Venous 37.4 MM HG; PH Patient Temp Venous 7.405; PO2 Patient Temp Venous 40.8 MM HG; Potassium Heart/CVR 5.3 MMOL/L (3.5-5.1); VBG HCO3 23.2 MEQ/L (24-28); VBG Oxygen Saturation 76.6 %; VBG PCO2 37.4 MMHG (41-51); VBG PH 7.405; VBG PO2 40.8 MMHG (17-40)
[2017-05-28 11:15] LABS: ABG Base Excess -4.1 MMOL/L (-2.5-2.5); ABG HCO3 20.7 MMOL/L (20-26); ABG Oxygen Saturation 98.6 % (95-100); ABG PCO2 36.8 MM HG (35-48); ABG PH 7.369 (7.35-7.45); ABG PO2 257.3 MM HG (80-95); ABG TCO2 21.9 MMOL/L (23-27); Glucose Heart Surgery 299 MG/DL (74-106); Hemoglobin Heart Surgery 10.1 G/DL (14.0-18.0); Ionized Calcium Arterial 1.43 MMOL/L (1.21-1.46); PCO2 Patient Temp Arterial 36.8 MMHG; PH Patient Temp Arterial 7.369; PO2 Patient Temp Arterial 257.3 MM HG; Patient Temperature 37 CELCIUS; Potassium Heart/CVR 3.9 MMOL/L (3.5-5.1); Sodium Heart/CVR 131 MMOL/L (135-145)
[2017-05-28] MEDS ORDERED: HEPARIN 10,000 UNIT/10 ML VIAL ONE (11:15)
[2017-05-28] MEDS ORDERED: methylPREDNISolone SOD SUC 1,000 MG/8 ML VIAL ONE (11:15)
[2017-05-28] MEDS ORDERED: PROTAMINE SULFATE 250 MG/25 ML VIAL IV ONE (11:15)
[2017-05-28] MEDS ORDERED: SODIUM BICARBONATE 50 MEQ/50 ML SYRINGE IV ONE (11:15)
[2017-05-28] MEDS ORDERED: MAGNESIUM SULFATE 1 GM/2 ML VIAL ONE (11:15)
[2017-05-28] MEDS ORDERED: ALBUMIN 25% 25 GM/100 ML VIAL IV ONE (11:15)
[2017-05-28] MEDS ORDERED: FUROSEMIDE 20 MG/2 ML VIAL ONE (11:15)
[2017-05-28] MEDS ORDERED: MANNITOL 12.5 GM/50 ML VIAL IV ONE (11:15)
[2017-05-28] MEDS ORDERED: DEXTROSE 5% KCL 20 MEQ 20 MEQ/1,000 ML BAG IV ONE (11:15)
[2017-05-28] MEDS ORDERED: PROTAMINE SULFATE 50 MG/5 ML VIAL IV ONE (11:16)
[2017-05-28] MEDS ORDERED: PHENYLEPHRINE 10 MG/1 ML VIAL IV ONE ×2 (11:16→12:21)
[2017-05-28] MEDS ORDERED: ALBUMIN 5% 12.5 GM/250 ML VIAL IV ONE ×3 (12:05→12:20)
[2017-05-28] MEDS ORDERED: HEPARIN/NACL 0.9% 2 UNITS/ML 500 ML IV ONE (12:20)
[2017-05-28] MEDS ORDERED: PROPOFOL 200 MG/20 ML VIAL IV ONE (12:20)
[2017-05-28] MEDS ORDERED: MINERAL OIL/PETROLATUM OPH OINT 3.5 GM TUBE ONE (12:20)
[2017-05-28] MEDS ORDERED: ePHEDrine 50 MG/ML AMP ONE (12:20)
[2017-05-28] MEDS ORDERED: SEVOFLURANE 1 UNIT/15 MINUTE INH ONE (12:20)
[2017-05-28] MEDS ORDERED: NITROGLYCERIN DRIP 50 MG/250 ML BOTTLE IV ONE (12:21)
[2017-05-28] MEDS ORDERED: SODIUM CHLORIDE 0.9% 100 ML IV ONE (12:21)
[2017-05-28] MEDS ORDERED: VECURONIUM 10 MG VIAL IV ONE (12:21)
[2017-05-28] MEDS ORDERED: SODIUM CHLORIDE 0.9% 250 ML IV ONE (12:21)
[2017-05-28] MEDS ORDERED: LACTATED RINGERS 1,000 ML IV ONE (12:21)
[2017-05-28] MEDS ORDERED: SODIUM CHLORIDE 0.9% 2,000 ML IV ONE (12:21)
[2017-05-28] MEDS ORDERED: CALCIUM CHLORIDE 1,000 MG/10 ML VIAL IV ONE (12:29)
[2017-05-28] MEDS ORDERED: ONDANSETRON 4 MG/2 ML VIAL IV PRN (12:37)
[2017-05-28] MEDS ORDERED: ALBUMIN 5% 12.5 GM in PREMIX 1 EACH IV PRN (12:37)
[2017-05-28] MEDS ORDERED: SODIUM CHLORIDE 0.45% 1,000 ML IV SCH ×2 (12:37)
[2017-05-28] MEDS ORDERED: MAGNESIUM SULF RIDER 2 GM in PREMIX 1 EACH IV PRN (12:37)
[2017-05-28] MEDS ORDERED: MIDAZOLAM 2 MG/2 ML VIAL IV PRN (12:37)
[2017-05-28] MEDS ORDERED: ACETAMINOPHEN 650 MG SUPP RECTAL PRN (12:37)
[2017-05-28] MEDS ORDERED: PHENYLEPHRINE DRIP 40 MG/250 ML PREMIX IV PRN (12:37)
[2017-05-28] MEDS ORDERED: VECURONIUM 10 MG VIAL IV PRN ×2 (12:37)
[2017-05-28] MEDS ORDERED: CALCIUM CHLORIDE 1,000 MG/10 ML SYRINGE IV PRN (12:37)
[2017-05-28] MEDS ORDERED: MAGNESIUM SULF RIDER 4 GM in PREMIX 1 EACH IV PRN (12:37)
[2017-05-28] MEDS ORDERED: LACTATED RINGERS 250 ML IV PRN (12:37)
[2017-05-28] MEDS ORDERED: INSULIN REGULAR 100 UNIT/ML IV ONE (12:37)
[2017-05-28] MEDS ORDERED: INSULIN REGULAR 100 UNIT/ML IV PRN (12:37)
[2017-05-28] MEDS ORDERED: INSULIN REGULAR DRIP 100 ML IV SCH (12:37)
[2017-05-28] MEDS ORDERED: NITROPRUSSIDE 100 MG in DEXTROSE 5% 250 ML IV PRN (12:37)
[2017-05-28] MEDS ORDERED: POTASSIUM CHLORIDE RIDER 10 MEQ in PREMIX 1 EACH IV PRN (12:37)
[2017-05-28 12:40] LABS: ABG Base Excess -4.5 MMOL/L (-2.5-2.5); ABG HCO3 20.7 MMOL/L (20-26); ABG Oxygen Saturation 97.5 % (95-100); ABG PH 7.353 (7.35-7.45); ABG PO2 96.8 MM HG (80-95); ABG TCO2 19.1 MMOL/L (23-27); Glucose Heart Surgery 220 MG/DL (74-106); Hematocrit Heart Surgery 27.2 PERCENT (42-52); Hemoglobin Heart Surgery 8.7 G/DL (14.0-18.0); Potassium Heart/CVR 3.8 MMOL/L (3.5-5.1)
[2017-05-28 12:42] LABS: Basophils % 0.3 % (0.0-0.8); Eosinophils # 0.1 10*3/uL (0.0-0.87); Eosinophils % 0.7 % (0.00-10.9); Hematocrit 26.1 VOL% (42.0-52.0); Immature Granulocytes % 0.9 %; Immature Granulocytes Absolute 0.11 #; Lymphocytes # 0.7 10*3/uL (1.4-4.0); Lymphocytes % 5.5 % (21.2-54.2); Mean Corpuscular HGB Conc 32.6 GM/DL (32-36); Mean Corpuscular Hemoglobin 30 PG (27-34); Mean Corpuscular Volume 91.9 FL (87-102); Mean Platelet Volume 11.7 FL (9.6-12.0); Monocytes # 0.6 10*3/uL (0.11-0.8); Monocytes % 4.9 % (1.7-12.7); Neutrophils # 10.7 10*3/uL (1.4-7.4); Neutrophils % 87.7 % (38.7-73.9); Platelet Count 187 T/CUMM (130-400); Red Cell Distribution Width 12.8 % (9.3-17.3)
[2017-05-28 12:47] LABS: Hemoglobin 8.5 GM/DL (14.0-18.0); Red Blood Count 2.84 MC/CUMM (3.8-5.5); White Blood Count 12.2 T/CUMM (4-12)
[2017-05-28 12:50] LABS: INR 1.2; PT Patient Result 12.2 SECS; Partial Thromboplastin Time 32.2 SECS (0-40)
[2017-05-28] MEDS ORDERED: POTASSIUM CHLORIDE RIDER 100 ML IV ONE ×2 (12:50→13:23)
[2017-05-28] MEDS: POTASSIUM CHLORIDE RIDER 20 MEQ in PREMIX 1 EACH IV PRN ×3 (12:50→18:26)
[2017-05-28 12:59] LABS: Bilirubin,Total 0.4 MG/DL (0.2-1.0); CKMB % 8.2 %; Calcium 8.7 MG/DL (8.5-10.1); Total Protein 4.8 G/DL (6.4-8.3)
[2017-05-28 13:01] LABS: Troponin I Only 4.01 NG/ML (0.00-0.045)
[2017-05-28] MEDS: KETOROLAC 30 MG/1 ML VIAL IV SCH ×2 (14:24→18:27)
[2017-05-28] MEDS: HYDROmorphone 2 MG/1 ML VIAL IV PRN ×3 (14:45→22:11)
[2017-05-28] MEDS ORDERED: SODIUM CHLORIDE 0.9% 1,000 ML IV ONE (15:00)
[2017-05-28 15:26] LABS: ABG Base Excess -1.8 MMOL/L (-2.5-2.5); ABG HCO3 22.9 MMOL/L (20-26); ABG Oxygen Saturation 99.1 % (95-100); ABG PCO2 34.6 MM HG (35-48); ABG PH 7.414 (7.35-7.45); ABG TCO2 19.6 MMOL/L (23-27); Glucose Heart Surgery 248 MG/DL (74-106); Hemoglobin Heart Surgery 11.7 G/DL (14.0-18.0); Potassium Heart/CVR 4.8 MMOL/L (3.5-5.1)
[2017-05-28] MEDS: MIDAZOLAM 10 MG/2 ML VIAL IV PRN ×2 (15:30→22:26)
[2017-05-28] MEDS ORDERED: INSULIN NPH/REGULAR 70/30 100 UNIT/ML SUBCUT SCH (16:30)
[2017-05-28 17:32] LABS: ABG Base Excess -4.2 MMOL/L (-2.5-2.5); ABG Oxygen Saturation 98.7 % (95-100); ABG TCO2 18.8 MMOL/L (23-27); Glucose Heart Surgery 229 MG/DL (74-106); Hematocrit Heart Surgery 35.9 PERCENT (42-52); Hemoglobin Heart Surgery 11.6 G/DL (14.0-18.0); Potassium Heart/CVR 4.4 MMOL/L (3.5-5.1)
[2017-05-28] MEDS ORDERED: ZALEPLON 5 MG CAPSULE PO PRN (20:00)
[2017-05-28] MEDS ORDERED: CEFUROXIME INJ 1,500 MG in SYRINGE 1 EACH IV SCH (20:17)
[2017-05-28 20:45] LABS: ABG Base Excess -4.1 MMOL/L (-2.5-2.5); ABG PCO2 35.6 MM HG (35-48); ABG PO2 99.3 MM HG (80-95); ABG TCO2 18.4 MMOL/L (23-27); Glucose Heart Surgery 143 MG/DL (74-106); Hematocrit Heart Surgery 35.8 PERCENT (42-52); Hemoglobin Heart Surgery 11.6 G/DL (14.0-18.0); Potassium Heart/CVR 4.5 MMOL/L (3.5-5.1)
[2017-05-28] MEDS ORDERED: FUROSEMIDE 40 MG/4 ML VIAL IV ONE (20:48)
[2017-05-28] MEDS ORDERED: CHLORHEXIDINE 0.12% ORAL RINSE 60 ML BOTTLE SWISH/SPIT SCH (21:00)
[2017-05-28] MEDS ORDERED: LISINOPRIL 10 MG TABLET PO SCH (21:00)
[2017-05-28] MEDS ORDERED: ROSUVASTATIN 20 MG TABLET PO SCH (21:00)
[2017-05-28] MEDS ORDERED: FUROSEMIDE 40 MG/4 ML VIAL IV PRN (21:21)
[2017-05-28 21:25] LABS: CKMB % 4.2 %
[2017-05-28 21:27] LABS: Troponin I Only 3.68 NG/ML (0.00-0.045)
[2017-05-28 23:27] LABS: ABG Base Excess -3.5 MMOL/L (-2.5-2.5); ABG HCO3 21.5 MMOL/L (20-26); ABG Oxygen Saturation 96.9 % (95-100); ABG PCO2 39.6 MM HG (35-48); ABG PH 7.349 (7.35-7.45); ABG PO2 87.2 MM HG (80-95); ABG TCO2 19.6 MMOL/L (23-27); Glucose Heart Surgery 102 MG/DL (74-106); Hematocrit Heart Surgery 34.6 PERCENT (42-52); Hemoglobin Heart Surgery 11.2 G/DL (14.0-18.0); Potassium Heart/CVR 4.3 MMOL/L (3.5-5.1)
[2017-05-29] MEDS: KETOROLAC 30 MG/1 ML VIAL IV SCH (01:00)
[2017-05-29] MEDS: HYDROmorphone 2 MG/1 ML VIAL IV PRN ×2 (02:01→09:24)
[2017-05-29 03:52] LABS: ABG Base Excess -6.3 MMOL/L (-2.5-2.5); ABG HCO3 19.3 MMOL/L (20-26); ABG Oxygen Saturation 97.7 % (95-100); ABG PCO2 38.8 MM HG (35-48); ABG PH 7.309 (7.35-7.45); ABG PO2 98.6 MM HG (80-95); ABG TCO2 17.3 MMOL/L (23-27); Glucose Heart Surgery 191 MG/DL (74-106); Hematocrit Heart Surgery 38.8 PERCENT (42-52); Hemoglobin Heart Surgery 12.6 G/DL (14.0-18.0); Potassium Heart/CVR 5.5 MMOL/L (3.5-5.1)
[2017-05-29 04:04] LABS: Basophils % 0.1 % (0.0-0.8); Hematocrit 36.2 VOL% (42.0-52.0); Immature Granulocytes % 0.4 %; Immature Granulocytes Absolute 0.08 #; Lymphocytes # 0.6 10*3/uL (1.4-4.0); Lymphocytes % 3.2 % (21.2-54.2); Mean Corpuscular HGB Conc 32.9 GM/DL (32-36); Mean Corpuscular Hemoglobin 30 PG (27-34); Mean Corpuscular Volume 90.7 FL (87-102); Mean Platelet Volume 12.5 FL (9.6-12.0); Monocytes # 0.7 10*3/uL (0.11-0.8); Monocytes % 4.2 % (1.7-12.7); Neutrophils # 16.4 10*3/uL (1.4-7.4); Neutrophils % 92.1 % (38.7-73.9); Platelet Count 222 T/CUMM (130-400); Red Blood Count 3.99 MC/CUMM (3.8-5.5); Red Cell Distribution Width 13.4 % (9.3-17.3); White Blood Count 17.8 T/CUMM (4-12)
[2017-05-29 04:11] LABS: Hemoglobin 11.9 GM/DL (14.0-18.0)
[2017-05-29 04:17] LABS: Albumin 3.4 G/DL (3.4-5.0); Bilirubin,Direct 0.18 MG/DL (0.0-0.20); Bilirubin,Total 0.6 MG/DL (0.2-1.0); Calcium 8.7 MG/DL (8.5-10.1); Osmolality,Calculated 287.4 MOS/KG (273-304); Potassium 5.7 MMOL/L (3.5-5.1); Total Protein 5.7 G/DL (6.4-8.3)
[2017-05-29 04:18] LABS: CKMB % 4.5 %
[2017-05-29 04:34] LABS: Troponin I Only 4.33 NG/ML (0.00-0.045)
[2017-05-29 05:20] LABS: ABG Base Excess -5.2 MMOL/L (-2.5-2.5); ABG HCO3 20.2 MMOL/L (20-26); ABG PH 7.418 (7.35-7.45); ABG TCO2 15.9 MMOL/L (23-27); Glucose Heart Surgery 203 MG/DL (74-106); Hematocrit Heart Surgery 37.9 PERCENT (42-52); Hemoglobin Heart Surgery 12.3 G/DL (14.0-18.0); Potassium Heart/CVR 4.6 MMOL/L (3.5-5.1)
[2017-05-29 05:24] LABS: ABG Oxygen Saturation 99.5 % (95-100)
[2017-05-29 06:07] LABS: Band Neutrophils 1 % (0-10); Hypochromasia Slight; Lymphocytes 3 % (20-55); Platelet Estimate Adequate; Segmented Neutrophils 93 % (50-85); Total Cells Counted 100
[2017-05-29 06:31] LABS: ABG Base Excess -4.9 MMOL/L (-2.5-2.5); ABG Oxygen Saturation 98.6 % (95-100); ABG PCO2 27.8 MM HG (35-48); ABG PH 7.429 (7.35-7.45); ABG PO2 155.2 MM HG (80-95); ABG TCO2 18.8 MMOL/L (23-27); Glucose Heart Surgery 207 MG/DL (74-106); Hemoglobin Heart Surgery 13.2 G/DL (14.0-18.0); Potassium Heart/CVR 4.7 MMOL/L (3.5-5.1)
[2017-05-29] MEDS ORDERED: INSULIN NPH/REGULAR 70/30 100 UNIT/ML SUBCUT SCH (07:30)
[2017-05-29] MEDS ORDERED: ONDANSETRON 4 MG/2 ML VIAL IV PRN (08:30)
[2017-05-29] MEDS ORDERED: ALUMINUM/MAGNES/SIMETH MAX STR 30 ML UDCUP PO PRN (08:30)
[2017-05-29] MEDS ORDERED: MAGNESIUM HYDROXIDE SUSP 30 ML UDCUP PO PRN (08:30)
[2017-05-29] MEDS ORDERED: GLUCAGON 1 MG VIAL IM PRN ×2 (08:30)
[2017-05-29] MEDS ORDERED: DEXTROSE 50% 25 GM/50 ML VIAL IV PRN ×2 (08:30)
[2017-05-29] MEDS ORDERED: MAGNESIUM SULF RIDER 2 GM in PREMIX 1 EACH IV PRN (08:30)
[2017-05-29] MEDS ORDERED: ZALEPLON 5 MG CAPSULE PO PRN (08:30)
[2017-05-29] MEDS ORDERED: MAGNESIUM SULF RIDER 4 GM in PREMIX 1 EACH IV PRN (08:30)
[2017-05-29] MEDS ORDERED: POTASSIUM CHLORIDE 20 MEQ TABLET PO PRN (08:30)
[2017-05-29] MEDS: DOCUSATE SODIUM 100 MG CAPSULE PO SCH (09:23)
[2017-05-29] MEDS: ASPIRIN EC 325 MG TABLET PO SCH (09:23)
[2017-05-29] MEDS: BISOPROLOL 5 MG TABLET PO SCH ×2 (09:23→21:45)
[2017-05-29] MEDS: METHOCARBAMOL 500 MG TABLET PO PRN (09:24)
[2017-05-29] MEDS: FERROUS SULFATE 325 MG TABLET PO SCH (09:24)
[2017-05-29] MEDS: CHLORHEXIDINE 0.12% ORAL RINSE 60 ML BOTTLE SWISH/SPIT SCH ×2 (09:26→22:23)
[2017-05-29] MEDS: SODIUM CHLOR 0.45% KCL 20 MEQ 20 MEQ/1,000 ML BAG IV SCH (09:27)
[2017-05-29] MEDS: LIDOCAINE 5% PATCH TRANSDERM SCH (09:28)
[2017-05-29] MEDS: PANTOPRAZOLE 40 MG TABLET PO SCH (09:29)
[2017-05-29] MEDS ORDERED: PROMETHAZINE 25 MG/1 ML VIAL ONE (09:57)
[2017-05-29] MEDS ORDERED: PROMETHAZINE INJ 12.5 MG in SODIUM CHLORIDE 0.9% 50 ML IV ONE (11:00)
[2017-05-29] MEDS: INSULIN REGULAR 100 UNIT/ML SUBCUT SCH ×5 (12:50→22:21)
[2017-05-29] MEDS ORDERED: INSULIN REGULAR 100 UNIT/ML SUBCUT SCH (16:30)
[2017-05-29] MEDS: CEFUROXIME INJ 1,500 MG in SYRINGE 1 EACH IV SCH (18:21)
[2017-05-29] MEDS: ROSUVASTATIN 20 MG TABLET PO SCH (21:45)
[2017-05-29] MEDS: INSULIN NPH/REGULAR 70/30 100 UNIT/ML SUBCUT SCH (22:21)
[2017-05-30] MEDS: INSULIN REGULAR 100 UNIT/ML SUBCUT SCH ×7 (02:08→23:33)
[2017-05-30] MEDS ORDERED: FUROSEMIDE 40 MG/4 ML VIAL IV ONE (06:00)
[2017-05-30 06:03] LABS: Basophils # 0.1 10*3/uL (0.0-0.2); Basophils % 0.3 % (0.0-0.8); Hematocrit 35.4 VOL% (42.0-52.0); Hemoglobin 11.3 GM/DL (14.0-18.0); Immature Granulocytes % 0.6 %; Lymphocytes # 1.2 10*3/uL (1.4-4.0); Lymphocytes % 6.6 % (21.2-54.2); Mean Corpuscular HGB Conc 31.9 GM/DL (32-36); Mean Corpuscular Hemoglobin 29 PG (27-34); Mean Corpuscular Volume 91.7 FL (87-102); Mean Platelet Volume 12.8 FL (9.6-12.0); Monocytes # 1.5 10*3/uL (0.11-0.8); Monocytes % 8.3 % (1.7-12.7); Neutrophils # 15.3 10*3/uL (1.4-7.4); Neutrophils % 84.2 % (38.7-73.9); Platelet Count 181 T/CUMM (130-400); Red Blood Count 3.86 MC/CUMM (3.8-5.5); Red Cell Distribution Width 13.7 % (9.3-17.3); White Blood Count 18.1 T/CUMM (4-12)
[2017-05-30 06:16] LABS: Alanine Aminotransferase 27 U/L (16-61); Alkaline Phosphatase 97 U/L (45-117); Aspartate Amino Transferase 32 U/L (0-37); Bilirubin,Indirect 0.3 MG/DL (0.0-1.0); Bilirubin,Total < 0.39 MG/DL (0.2-1.0); Blood Urea Nitrogen 41 MG/DL (7-18); CKMB % 2.1 %; Calcium 8.5 MG/DL (8.5-10.1); Glucose 232 MG/DL (74-106); Potassium 4.9 MMOL/L (3.5-5.1); Sodium 136 MMOL/L (136-145); Total Protein 5.6 G/DL (6.4-8.3)
[2017-05-30] MEDS: CEFUROXIME INJ 1,500 MG in SYRINGE 1 EACH IV SCH (06:21)
[2017-05-30] MEDS: PROMETHAZINE 25 MG TABLET PO PRN ×3 (08:35→20:48)
[2017-05-30] MEDS: METOCLOPRAMIDE 10 MG TABLET PO PRN ×3 (08:36→20:48)
[2017-05-30] MEDS: BISOPROLOL 5 MG TABLET PO SCH ×2 (09:40→20:47)
[2017-05-30] MEDS: LIDOCAINE 5% PATCH TRANSDERM SCH (09:41)
[2017-05-30] MEDS: DOCUSATE SODIUM 100 MG CAPSULE PO SCH (09:42)
[2017-05-30] MEDS: ASPIRIN EC 325 MG TABLET PO SCH (09:42)
[2017-05-30] MEDS: FERROUS SULFATE 325 MG TABLET PO SCH (09:42)
[2017-05-30] MEDS: PANTOPRAZOLE 40 MG TABLET PO SCH (09:42)
[2017-05-30] MEDS: CHLORHEXIDINE 0.12% ORAL RINSE 60 ML BOTTLE SWISH/SPIT SCH ×2 (09:43→20:48)
[2017-05-30] MEDS: INSULIN NPH/REGULAR 70/30 100 UNIT/ML SUBCUT SCH ×3 (09:43→17:57)
[2017-05-30] MEDS: SODIUM CHLOR 0.45% KCL 20 MEQ 20 MEQ/1,000 ML BAG IV SCH (12:51)
[2017-05-30] MEDS: ROSUVASTATIN 20 MG TABLET PO SCH (20:47)
[2017-05-31] MEDS: INSULIN REGULAR 100 UNIT/ML SUBCUT SCH ×5 (02:34→18:31)
[2017-05-31 05:02] LABS: Basophils # 0.1 10*3/uL (0.0-0.2); Basophils % 0.4 % (0.0-0.8); Eosinophils # 0.1 10*3/uL (0.0-0.87); Eosinophils % 0.4 % (0.00-10.9); Hematocrit 37.7 VOL% (42.0-52.0); Hemoglobin 12.4 GM/DL (14.0-18.0); Immature Granulocytes % 0.5 %; Immature Granulocytes Absolute 0.08 #; Lymphocytes # 1.4 10*3/uL (1.4-4.0); Lymphocytes % 9.1 % (21.2-54.2); Mean Corpuscular HGB Conc 32.9 GM/DL (32-36); Mean Corpuscular Hemoglobin 30 PG (27-34); Mean Platelet Volume 12.8 FL (9.6-12.0); Monocytes # 1.7 10*3/uL (0.11-0.8); Monocytes % 10.5 % (1.7-12.7); Neutrophils # 12.5 10*3/uL (1.4-7.4); Neutrophils % 79.1 % (38.7-73.9); Platelet Count 167 T/CUMM (130-400); Red Blood Count 4.19 MC/CUMM (3.8-5.5); Red Cell Distribution Width 13.5 % (9.3-17.3); White Blood Count 15.8 T/CUMM (4-12)
[2017-05-31 05:32] LABS: Alanine Aminotransferase 33 U/L (16-61); Albumin 2.8 G/DL (3.4-5.0); Alkaline Phosphatase 105 U/L (45-117); Aspartate Amino Transferase 30 U/L (0-37); Bilirubin,Indirect 0.4 MG/DL (0.0-1.0); Blood Urea Nitrogen 39 MG/DL (7-18); Calcium 8.7 MG/DL (8.5-10.1); Glucose 114 MG/DL (74-106); Osmolality,Calculated 286.5 MOS/KG (273-304); Potassium 4.8 MMOL/L (3.5-5.1); Sodium 139 MMOL/L (136-145); Total Protein 5.9 G/DL (6.4-8.3)
[2017-05-31] MEDS: BISOPROLOL 5 MG TABLET PO SCH ×2 (09:38→20:50)
[2017-05-31] MEDS: ASPIRIN EC 325 MG TABLET PO SCH (09:38)
[2017-05-31] MEDS: FERROUS SULFATE 325 MG TABLET PO SCH (09:38)
[2017-05-31] MEDS: PANTOPRAZOLE 40 MG TABLET PO SCH (09:38)
[2017-05-31] MEDS: DOCUSATE SODIUM 100 MG CAPSULE PO SCH (09:38)
[2017-05-31] MEDS: LIDOCAINE 5% PATCH TRANSDERM SCH (09:39)
[2017-05-31] MEDS: INSULIN NPH/REGULAR 70/30 100 UNIT/ML SUBCUT SCH ×3 (09:40→17:05)
[2017-05-31] MEDS: CHLORHEXIDINE 0.12% ORAL RINSE 60 ML BOTTLE SWISH/SPIT SCH ×2 (09:40→20:51)
[2017-05-31] MEDS: ROSUVASTATIN 20 MG TABLET PO SCH (20:50)
[2017-06-01] MEDS: INSULIN REGULAR 100 UNIT/ML SUBCUT SCH ×7 (00:19→21:18)
[2017-06-01] MEDS: ACETAMINOPHEN 325 MG TABLET PO PRN ×2 (06:18→13:13)
[2017-06-01] MEDS: BISOPROLOL 5 MG TABLET PO SCH ×2 (08:46→21:15)
[2017-06-01] MEDS: ASPIRIN EC 325 MG TABLET PO SCH (08:46)
[2017-06-01] MEDS: FERROUS SULFATE 325 MG TABLET PO SCH (08:46)
[2017-06-01] MEDS: PANTOPRAZOLE 40 MG TABLET PO SCH (08:46)
[2017-06-01] MEDS: LIDOCAINE 5% PATCH TRANSDERM SCH (08:47)
[2017-06-01] MEDS: INSULIN NPH/REGULAR 70/30 100 UNIT/ML SUBCUT SCH ×3 (08:47→16:54)
[2017-06-01] MEDS: DOCUSATE SODIUM 100 MG CAPSULE PO SCH (08:47)
[2017-06-01] MEDS: CHLORHEXIDINE 0.12% ORAL RINSE 60 ML BOTTLE SWISH/SPIT SCH ×2 (08:48→21:18)
[2017-06-01] MEDS: ROSUVASTATIN 20 MG TABLET PO SCH (21:15)
[2017-06-02 05:00] LABS: Basophils # 0.1 10*3/uL (0.0-0.2); Basophils % 0.5 % (0.0-0.8); Eosinophils # 0.2 10*3/uL (0.0-0.87); Hematocrit 37.7 VOL% (42.0-52.0); Immature Granulocytes % 0.5 %; Immature Granulocytes Absolute 0.05 #; Lymphocytes % 9.7 % (21.2-54.2); Mean Corpuscular HGB Conc 34.5 GM/DL (32-36); Mean Corpuscular Hemoglobin 30 PG (27-34); Mean Corpuscular Volume 86.9 FL (87-102); Monocytes % 9.6 % (1.7-12.7); Neutrophils # 8.3 10*3/uL (1.4-7.4); Neutrophils % 77.7 % (38.7-73.9); Platelet Count 238 T/CUMM (130-400); Red Blood Count 4.34 MC/CUMM (3.8-5.5); Red Cell Distribution Width 12.9 % (9.3-17.3); White Blood Count 10.7 T/CUMM (4-12)
[2017-06-02 05:56] LABS: Alanine Aminotransferase 185 U/L (16-61); Albumin 2.6 G/DL (3.4-5.0); Alkaline Phosphatase 326 U/L (45-117); Aspartate Amino Transferase 174 U/L (0-37); Bilirubin,Indirect 0.8 MG/DL (0.0-1.0); Blood Urea Nitrogen 20 MG/DL (7-18); Calcium 8.5 MG/DL (8.5-10.1); Glucose 208 MG/DL (74-106); Osmolality,Calculated 281.8 MOS/KG (273-304); Potassium 5.3 MMOL/L (3.5-5.1); Sodium 137 MMOL/L (136-145); Total Protein 5.8 G/DL (6.4-8.3)
[2017-06-02 05:58] LABS: Troponin I Only 0.746 NG/ML (0.00-0.045)
[2017-06-02] MEDS: METHOCARBAMOL 500 MG TABLET PO PRN (09:41)
[2017-06-02] MEDS: ACETAMINOPHEN 325 MG TABLET PO PRN (09:43)
[2017-06-02] MEDS: BISOPROLOL 5 MG TABLET PO SCH ×2 (09:44→20:49)
[2017-06-02] MEDS: DOCUSATE SODIUM 100 MG CAPSULE PO SCH (09:45)
[2017-06-02] MEDS: INSULIN REGULAR 100 UNIT/ML SUBCUT SCH ×4 (09:45→20:49)
[2017-06-02] MEDS: ASPIRIN EC 325 MG TABLET PO SCH (09:45)
[2017-06-02] MEDS: PANTOPRAZOLE 40 MG TABLET PO SCH (09:45)
[2017-06-02] MEDS: FERROUS SULFATE 325 MG TABLET PO SCH (09:45)
[2017-06-02] MEDS: INSULIN NPH/REGULAR 70/30 100 UNIT/ML SUBCUT SCH ×3 (09:46→17:49)
[2017-06-02] MEDS: LIDOCAINE 5% PATCH TRANSDERM SCH (11:48)
[2017-06-02] MEDS: LISINOPRIL 10 MG TABLET PO SCH (12:42)
[2017-06-02] MEDS: CHLORHEXIDINE 0.12% ORAL RINSE 60 ML BOTTLE SWISH/SPIT SCH ×2 (12:55→20:52)
[2017-06-02] MEDS: ROSUVASTATIN 20 MG TABLET PO SCH (20:49)
[2017-06-03] MEDS: METHOCARBAMOL 500 MG TABLET PO PRN ×2 (00:11→08:44)
[2017-06-03] MEDS: HYDROmorphone 2 MG/1 ML VIAL IV PRN (03:50)
[2017-06-03 05:24] LABS: Basophils # 0.1 10*3/uL (0.0-0.2); Basophils % 0.4 % (0.0-0.8); Eosinophils # 0.3 10*3/uL (0.0-0.87); Eosinophils % 2.6 % (0.00-10.9); Hematocrit 38.3 VOL% (42.0-52.0); Hemoglobin 13.1 GM/DL (14.0-18.0); Immature Granulocytes % 0.4 %; Immature Granulocytes Absolute 0.05 #; Lymphocytes # 1.4 10*3/uL (1.4-4.0); Lymphocytes % 12.4 % (21.2-54.2); Mean Corpuscular HGB Conc 34.2 GM/DL (32-36); Mean Corpuscular Hemoglobin 30 PG (27-34); Mean Corpuscular Volume 87.4 FL (87-102); Mean Platelet Volume 11.6 FL (9.6-12.0); Monocytes # 1.3 10*3/uL (0.11-0.8); Monocytes % 11.4 % (1.7-12.7); Neutrophils # 8.4 10*3/uL (1.4-7.4); Neutrophils % 72.8 % (38.7-73.9); Platelet Count 318 T/CUMM (130-400); Red Blood Count 4.38 MC/CUMM (3.8-5.5); Red Cell Distribution Width 13.1 % (9.3-17.3); White Blood Count 11.6 T/CUMM (4-12)
[2017-06-03 05:59] LABS: Alanine Aminotransferase 123 U/L (16-61); Albumin 2.6 G/DL (3.4-5.0); Alkaline Phosphatase 313 U/L (45-117); Aspartate Amino Transferase 76 U/L (0-37); Bilirubin,Indirect 0.5 MG/DL (0.0-1.0); Blood Urea Nitrogen 19 MG/DL (7-18); Calcium 8.6 MG/DL (8.5-10.1); Glucose 92 MG/DL (74-106); Osmolality,Calculated 278.5 MOS/KG (273-304); Potassium 4.8 MMOL/L (3.5-5.1); Sodium 139 MMOL/L (136-145); Total Protein 5.8 G/DL (6.4-8.3)
[2017-06-03 06:00] LABS: Troponin I Only 0.503 NG/ML (0.00-0.045)
[2017-06-03] MEDS: ACETAMINOPHEN 325 MG TABLET PO PRN (08:43)
[2017-06-03] MEDS: INSULIN NPH/REGULAR 70/30 100 UNIT/ML SUBCUT SCH ×3 (08:44→16:46)
[2017-06-03] MEDS: ASPIRIN EC 325 MG TABLET PO SCH (08:45)
[2017-06-03] MEDS: FERROUS SULFATE 325 MG TABLET PO SCH (08:45)
[2017-06-03] MEDS: BISOPROLOL 5 MG TABLET PO SCH ×2 (08:45→20:46)
[2017-06-03] MEDS: DOCUSATE SODIUM 100 MG CAPSULE PO SCH (08:46)
[2017-06-03] MEDS: LIDOCAINE 5% PATCH TRANSDERM SCH (08:47)
[2017-06-03] MEDS: LISINOPRIL 10 MG TABLET PO SCH (08:47)
[2017-06-03] MEDS: INSULIN REGULAR 100 UNIT/ML SUBCUT SCH ×4 (08:48→21:33)
[2017-06-03] MEDS: CHLORHEXIDINE 0.12% ORAL RINSE 60 ML BOTTLE SWISH/SPIT SCH ×2 (08:49→20:48)
[2017-06-03] MEDS: PANTOPRAZOLE 40 MG TABLET PO SCH (12:11)
[2017-06-03] MEDS: HYDROmorphone 2 MG TABLET PO PRN ×2 (12:30→18:46)
[2017-06-03] MEDS: ROSUVASTATIN 20 MG TABLET PO SCH (20:46)
[2017-06-04] MEDS: INSULIN REGULAR 100 UNIT/ML SUBCUT SCH ×2 (08:45→12:50)
[2017-06-04] MEDS: LIDOCAINE 5% PATCH TRANSDERM SCH (09:01)
[2017-06-04] MEDS: DOCUSATE SODIUM 100 MG CAPSULE PO SCH (09:01)
[2017-06-04] MEDS: BISOPROLOL 5 MG TABLET PO SCH (09:01)
[2017-06-04] MEDS: LISINOPRIL 10 MG TABLET PO SCH (09:01)
[2017-06-04] MEDS: FERROUS SULFATE 325 MG TABLET PO SCH (09:01)
[2017-06-04] MEDS: METHOCARBAMOL 500 MG TABLET PO PRN (09:01)
[2017-06-04] MEDS: ASPIRIN EC 325 MG TABLET PO SCH (09:01)
[2017-06-04] MEDS: PANTOPRAZOLE 40 MG TABLET PO SCH (09:01)
[2017-06-04] MEDS: INSULIN NPH/REGULAR 70/30 100 UNIT/ML SUBCUT SCH ×2 (09:02→12:50)
[2017-06-04] MEDS: CHLORHEXIDINE 0.12% ORAL RINSE 60 ML BOTTLE SWISH/SPIT SCH (09:02)
[2017-06-04] MEDS: HYDROmorphone 2 MG TABLET PO PRN (09:34)
[2017-06-04 12:08] VITALS: BP 129/61
== END 2017-06-04 14:06 | disposition home health service (06) | DRG 236 ==
LOC: N.4E 12:27 → N.CVR 05-28 08:25 → N.TELES 05-29 11:30

== ENCOUNTER 2019-12-25 06:47 | Inpatient (IN) ==
[2019-12-20 12:34] LABS: Basophils # 0.1 10*3/uL (0.0-0.2); Basophils % 0.7 % (0.0-0.8); Eosinophils # 0.2 10*3/uL (0.0-0.87); Eosinophils % 1.6 % (0.00-10.9); Hematocrit 42.8 VOL% (42.0-52.0); Immature Granulocytes % 0.4 %; Immature Granulocytes Absolute 0.04 #; Lymphocytes # 1.7 10*3/uL (1.4-4.0); Mean Corpuscular HGB Conc 32.7 GM/DL (32-36); Mean Corpuscular Volume 88.2 FL (87-102); Monocytes % 9.8 % (1.7-12.7); Neutrophils % 70.5 % (38.7-73.9); Platelet Count 339 T/CUMM (130-400); Red Blood Count 4.85 MC/CUMM (3.8-5.5); Red Cell Distribution Width 13.8 % (9.3-17.3); White Blood Count 9.9 T/CUMM (4-12)
[2019-12-20 12:49] LABS: Albumin 3.5 G/DL (3.4-5.0); Bilirubin,Total 0.8 MG/DL (0.2-1.0); Calcium 9.4 MG/DL (8.5-10.1); Osmolality,Calculated 284.4 MOS/KG (273-304); Total Protein 7.9 G/DL (6.4-8.3)
[2019-12-20 13:04] LABS: Giant Platelets 1+; Platelet Estimate Adequate
[~2019-12-25 06:47] MED LIST: HEPARIN/NACL 0.9% 2 UNITS/ML 500 ML IV ONE; NITROGLYCERIN DRIP 50 MG/250 ML BOTTLE IV ONE; PHENYLEPHRINE DRIP 20 MG/250 ML PREMIX IV ONE; ceFAZolin 1,000 MG in SYRINGE 1 EACH IV ONE
[2019-12-25] MEDS ORDERED: ceFAZolin 1,000 MG VIAL ONE (07:13)
[2019-12-25] MEDS ORDERED: LACTATED RINGERS 1,000 ML IV SCH (08:00)
[2019-12-25] MEDS ORDERED: DIAZEPAM 5 MG TABLET PO ONE (08:01)
[2019-12-25] MEDS ORDERED: GABAPENTIN 400 MG CAPSULE PO ONE (08:01)
[2019-12-25] MEDS ORDERED: ACETAMINOPHEN 500 MG TABLET PO ONE (08:01)
[2019-12-25] MEDS ORDERED: FAMOTIDINE 20 MG TABLET PO ONE (08:01)
[2019-12-25] MEDS ORDERED: DIAZEPAM 5 MG TABLET ONE (08:24)
[2019-12-25] MEDS ORDERED: FAMOTIDINE 20 MG TABLET ONE (08:24)
[2019-12-25] MEDS ORDERED: BUPIVACAINE MPF 0.5% /EPI 30 ML VIAL ONE (08:29)
[2019-12-25] MEDS ORDERED: LIDOCAINE 1% 5 ML VIAL ONE (08:30)
[2019-12-25] MEDS ORDERED: DEXMEDETOMIDINE 200 MCG/2 ML VIAL ONE (08:30)
[2019-12-25] MEDS ORDERED: DEXAMETHASONE 4 MG/1 ML VIAL ONE (08:30)
[2019-12-25] MEDS ORDERED: GABAPENTIN 400 MG CAPSULE ONE (08:36)
[2019-12-25] MEDS ORDERED: LIDOCAINE 1% 20 ML VIAL ONE (09:27)
[2019-12-25] MEDS ORDERED: HYDROmorphone 2 MG/1 ML VIAL IV PRN ×2 (11:18)
[2019-12-25] MEDS ORDERED: DEXTROSE 50% 25 GM/50 ML VIAL IV PRN (11:18)
[2019-12-25] MEDS ORDERED: ONDANSETRON 4 MG/2 ML VIAL IV PRN (11:18)
[2019-12-25] MEDS ORDERED: oxyCODONE/ACETAMINOPHEN 5-325 MG TABLET PO PRN ×2 (11:18)
[2019-12-25] MEDS ORDERED: PROMETHAZINE 25 MG/1 ML VIAL IM PRN (11:18)
[2019-12-25] MEDS ORDERED: NALOXONE 0.4 MG/ML VIAL IV PRN (11:18)
[2019-12-25] MEDS ORDERED: GLUCAGON 1 MG VIAL IM PRN (11:18)
[2019-12-25] MEDS ORDERED: NITROPRUSSIDE 100 MG in DEXTROSE 5% 250 ML IV SCH (11:30)
[2019-12-25] MEDS ORDERED: ONDANSETRON 4 MG/2 ML VIAL ONE (11:46)
[2019-12-25] MEDS ORDERED: propofoL 200 MG/20 ML VIAL IV ONE (11:46)
[2019-12-25] MEDS ORDERED: GLYCOPYRROLATE 0.4 MG/2 ML VIAL ONE (11:46)
[2019-12-25] MEDS ORDERED: fentaNYL 100 MCG/2 ML VIAL ONE (11:46)
[2019-12-25] MEDS ORDERED: ETOMIDATE 40 MG/20 ML VIAL IV ONE (11:46)
[2019-12-25] MEDS ORDERED: LIDOCAINE 2% 5 ML VIAL ONE (11:46)
[2019-12-25] MEDS ORDERED: HEPARIN 10,000 UNIT/10 ML VIAL ONE (11:46)
[2019-12-25] MEDS ORDERED: PROTAMINE SULFATE 50 MG/5 ML VIAL IV ONE (11:47)
[2019-12-25] MEDS ORDERED: NEOSTIGMINE 10 MG/10 ML VIAL ONE (11:47)
[2019-12-25] MEDS ORDERED: ROCURONIUM 100 MG/10 ML VIAL IV ONE (11:47)
[2019-12-25] MEDS ORDERED: SUCCINYLCHOLINE 200 MG/10 ML VIAL ONE (11:47)
[2019-12-25] MEDS: LACTATED RINGERS 1,000 ML IV SCH ×2 (12:36→23:32)
[2019-12-25] MEDS: PHENYLEPHRINE DRIP 40 MG/250 ML PREMIX IV SCH ×2 (12:36→12:47)
[2019-12-25] MEDS: INSULIN REGULAR 100 UNIT/ML SUBCUT SCH ×3 (16:06→23:41)
[2019-12-26] MEDS ORDERED: DEXTROSE 50% 25 GM/50 ML VIAL IV PRN (06:50)
[2019-12-26] MEDS ORDERED: GLUCAGON 1 MG VIAL IM PRN (06:50)
[2019-12-26] MEDS: INSULIN REGULAR 100 UNIT/ML SUBCUT SCH ×2 (07:46→12:13)
[2019-12-26] MEDS: LACTATED RINGERS 1,000 ML IV SCH (07:46)
[2019-12-26] MEDS ORDERED: INSULIN NPH/REGULAR 70/30 100 UNIT/ML SUBCUT SCH (09:00)
[2019-12-26] MEDS ORDERED: ASPIRIN EC 81 MG TABLET PO SCH (09:00)
[2019-12-26] MEDS ORDERED: CLOPIDOGREL 75 MG TABLET PO SCH ×2 (09:00)
[2019-12-26 12:12] VITALS: BP 101/55
== END 2019-12-26 14:32 | disposition home or self-care (01) | DRG 39 ==
LOC: N.SDSINP 06:47 → N.ICU 12:27
PROVIDERS: ADMIT Surgery; ATTEND Surgery

== ENCOUNTER 2020-01-28 19:25 | Inpatient (IN) ==
[2020-01-28 19:51] LABS: Basophils % 0.4 % (0.0-0.8); Eosinophils # 0.2 10*3/uL (0.0-0.87); Eosinophils % 1.9 % (0.00-10.9); Hematocrit 28.2 VOL% (42.0-52.0); Hemoglobin 9.1 GM/DL (14.0-18.0); Immature Granulocytes % 0.7 %; Immature Granulocytes Absolute 0.07 #; Lymphocytes # 1.7 10*3/uL (1.4-4.0); Lymphocytes % 18.4 % (21.2-54.2); Mean Corpuscular HGB Conc 32.3 GM/DL (32-36); Mean Corpuscular Volume 85.5 FL (87-102); Mean Platelet Volume 10.7 FL (9.6-12.0); Monocytes % 8.2 % (1.7-12.7); Neutrophils % 70.4 % (38.7-73.9); Platelet Count 431 T/CUMM (130-400); Red Cell Distribution Width 13.4 % (9.3-17.3); White Blood Count 9.4 T/CUMM (4-12)
[2020-01-28 20:01] LABS: INR 0.9; PT Patient Result 9.9 SECS (9.8-11.9); Partial Thromboplastin Time 24.2 SECS (23.9-33.8)
[2020-01-28 20:19] LABS: Alanine Aminotransferase 19 U/L (16-61); Albumin 3.4 G/DL (3.4-5.0); Alkaline Phosphatase 157 U/L (45-117); Aspartate Amino Transferase 13 U/L (0-37); Bilirubin,Total < 0.39 MG/DL (0.2-1.0); Blood Urea Nitrogen 20 MG/DL (7-18); Calcium 9.3 MG/DL (8.5-10.1); Estimated Glom Filtration Rate 52 ML/MIN; Glucose 141 MG/DL (74-106); Osmolality,Calculated 277.8 MOS/KG (273-304); Total Protein 7.6 G/DL (6.4-8.3)
[2020-01-28] MEDS ORDERED: SODIUM CHLORIDE 0.9% 1,000 ML IV STA (20:38)
[2020-01-28 20:46] LABS: Bilirubin,Urine Negative (Negative); Blood, Urine Negative (Negative); Glucose,Urine (UA) 50 mg/dL (Negative); Ketones,Urine Negative (Negative); Nitrite,Urine Negative (Negative); Protein,Urine Negative; RBC,Urine 1 /HPF (0-4); Urine Appearance CLEAR (Clear); Urine Color Yellow (Yellow); Urine Specific Gravity 1.012 (1.001-1.035); Urine Urobilinogen < 2.0 EU/DL (0.2-1.0); WBC,Urine <1 /HPF (0-6)
[2020-01-28] MEDS ORDERED: PANTOPRAZOLE INJ 80 MG in SODIUM CHLORIDE 0.9% 100 ML IV ONE (21:36)
[2020-01-28] MEDS ORDERED: PANTOPRAZOLE 40 MG VIAL IV ONE ×2 (21:38→21:44)
[2020-01-28] MEDS ORDERED: ONDANSETRON ODT 4 MG TABLET PO ONE (21:51)
[2020-01-28] MEDS ORDERED: PANTOPRAZOLE INJ 200 MG in SODIUM CHLORIDE 0.9% 250 ML IV SCH (23:00)
[2020-01-29] MEDS ORDERED: ACETAMINOPHEN 325 MG TABLET PO PRN (00:19)
[2020-01-29] MEDS ORDERED: GLUCAGON 1 MG VIAL IM PRN (00:19)
[2020-01-29] MEDS ORDERED: DEXTROSE 50% 25 GM/50 ML VIAL IV PRN (00:19)
[2020-01-29] MEDS ORDERED: ONDANSETRON 4 MG/2 ML VIAL IV PRN (00:19)
[2020-01-29] MEDS ORDERED: SODIUM CHLORIDE 0.9% 1,000 ML IV PRN (00:24)
[2020-01-29] MEDS: INSULIN REGULAR 100 UNIT/ML SUBCUT SCH ×4 (08:27→21:58)
[2020-01-29 12:09] LABS: Hematocrit 32.7 VOL% (42.0-52.0); Hemoglobin 10.9 GM/DL (14.0-18.0)
[2020-01-29 18:35] LABS: Hematocrit 31.2 VOL% (42.0-52.0); Hemoglobin 10.1 GM/DL (14.0-18.0)
[2020-01-30 00:48] LABS: Hematocrit 30.7 VOL% (42.0-52.0); Hemoglobin 10.2 GM/DL (14.0-18.0)
[2020-01-30 05:39] LABS: Basophils % 0.7 % (0.0-0.8); Eosinophils # 0.2 10*3/uL (0.0-0.87); Eosinophils % 3.4 % (0.00-10.9); Hematocrit 31.7 VOL% (42.0-52.0); Hemoglobin 10.5 GM/DL (14.0-18.0); Immature Granulocytes % 0.3 %; Immature Granulocytes Absolute 0.02 #; Lymphocytes # 1.5 10*3/uL (1.4-4.0); Mean Corpuscular HGB Conc 33.1 GM/DL (32-36); Mean Corpuscular Volume 85.2 FL (87-102); Mean Platelet Volume 10.4 FL (9.6-12.0); Monocytes % 10.2 % (1.7-12.7); Neutrophils % 59.4 % (38.7-73.9); Platelet Count 358 T/CUMM (130-400); Red Blood Count 3.72 MC/CUMM (3.8-5.5); Red Cell Distribution Width 13.2 % (9.3-17.3); White Blood Count 5.8 T/CUMM (4-12)
[2020-01-30 05:57] LABS: Calcium 8.8 MG/DL (8.5-10.1); Osmolality,Calculated 278.4 MOS/KG (273-304)
[2020-01-30] MEDS: INSULIN REGULAR 100 UNIT/ML SUBCUT SCH ×4 (07:03→20:43)
[2020-01-30] MEDS ORDERED: LACTATED RINGERS 1,000 ML IV SCH (08:00)
[2020-01-30] MEDS: PANTOPRAZOLE 40 MG VIAL IV SCH ×2 (08:20→20:43)
[2020-01-30] MEDS ORDERED: LIDOCAINE 2% 5 ML VIAL ONE (09:00)
[2020-01-30] MEDS ORDERED: propofoL 200 MG/20 ML VIAL IV ONE (09:00)
[2020-01-31 05:21] LABS: Basophils % 0.4 % (0.0-0.8); Eosinophils # 0.2 10*3/uL (0.0-0.87); Eosinophils % 2.4 % (0.00-10.9); Hematocrit 31.2 VOL% (42.0-52.0); Hemoglobin 10.2 GM/DL (14.0-18.0); Immature Granulocytes % 0.3 %; Immature Granulocytes Absolute 0.02 #; Lymphocytes # 1.3 10*3/uL (1.4-4.0); Lymphocytes % 19.1 % (21.2-54.2); Mean Corpuscular HGB Conc 32.7 GM/DL (32-36); Mean Corpuscular Volume 86.4 FL (87-102); Mean Platelet Volume 10.8 FL (9.6-12.0); Monocytes % 9.4 % (1.7-12.7); Neutrophils % 68.4 % (38.7-73.9); Platelet Count 352 T/CUMM (130-400); Red Blood Count 3.61 MC/CUMM (3.8-5.5); Red Cell Distribution Width 13.3 % (9.3-17.3)
[2020-01-31 05:30] LABS: Calcium 8.7 MG/DL (8.5-10.1); Osmolality,Calculated 294.2 MOS/KG (273-304)
[2020-01-31] MEDS: INSULIN REGULAR 100 UNIT/ML SUBCUT SCH ×4 (07:07→22:42)
[2020-01-31] MEDS: SODIUM CHLORIDE 0.9% 1,000 ML IV SCH ×3 (08:22→22:42)
[2020-01-31] MEDS: PANTOPRAZOLE 40 MG VIAL IV SCH ×2 (08:22→20:37)
[2020-01-31] MEDS ORDERED: GLUCAGON 1 MG VIAL IM PRN (09:19)
[2020-01-31] MEDS ORDERED: DEXTROSE 50% 25 GM/50 ML VIAL IV PRN (09:19)
[2020-01-31] MEDS ORDERED: SODIUM CHLORIDE 0.9% 1,000 ML IV ONE (09:24)
[2020-01-31] MEDS: INSULIN NPH/REGULAR 70/30 100 UNIT/ML SUBCUT SCH ×2 (09:57→17:28)
[2020-01-31] MEDS ORDERED: BISACODYL 5 MG TABLET PO ONE (12:00)
[2020-01-31] MEDS ORDERED: POLYETHYLENE GLYCOL POWDER 255 GM BOTTLE PO ONE (16:00)
[2020-02-01] MEDS: SODIUM CHLORIDE 0.9% 1,000 ML IV SCH (05:54)
[2020-02-01 06:00] LABS: Basophils % 0.5 % (0.0-0.8); Eosinophils # 0.2 10*3/uL (0.0-0.87); Hematocrit 30.9 VOL% (42.0-52.0); Hemoglobin 10.1 GM/DL (14.0-18.0); Immature Granulocytes % 0.5 %; Immature Granulocytes Absolute 0.03 #; Lymphocytes # 1.2 10*3/uL (1.4-4.0); Lymphocytes % 19.3 % (21.2-54.2); Mean Corpuscular HGB Conc 32.7 GM/DL (32-36); Mean Corpuscular Volume 85.8 FL (87-102); Mean Platelet Volume 10.7 FL (9.6-12.0); Monocytes % 9.3 % (1.7-12.7); Neutrophils % 67.4 % (38.7-73.9); Platelet Count 325 T/CUMM (130-400); Red Cell Distribution Width 13.2 % (9.3-17.3); White Blood Count 6.4 T/CUMM (4-12)
[2020-02-01] MEDS ORDERED: MAGNESIUM CITRATE 300 ML BOTTLE PO ONE (06:00)
[2020-02-01 06:06] LABS: PT Patient Result 10.4 SECS (9.8-11.9)
[2020-02-01 06:23] LABS: Calcium 9.1 MG/DL (8.5-10.1); Osmolality,Calculated 280.8 MOS/KG (273-304)
[2020-02-01] MEDS: INSULIN REGULAR 100 UNIT/ML SUBCUT SCH ×2 (07:55→11:17)
[2020-02-01] MEDS ORDERED: LACTATED RINGERS 1,000 ML IV SCH (08:00)
[2020-02-01] MEDS ORDERED: ETOMIDATE 20 MG/10 ML VIAL IV ONE (09:00)
[2020-02-01] MEDS ORDERED: propofoL 200 MG/20 ML VIAL IV ONE (09:00)
[2020-02-01] MEDS ORDERED: LIDOCAINE 2% 5 ML VIAL ONE (09:00)
[2020-02-01] MEDS: INSULIN NPH/REGULAR 70/30 100 UNIT/ML SUBCUT SCH (09:15)
[2020-02-01] MEDS: PANTOPRAZOLE 40 MG VIAL IV SCH (09:30)
[2020-02-01] MEDS ORDERED: SODIUM CHLORIDE 0.9% 500 ML IV SCH (12:00)
[2020-02-01 13:04] VITALS: BP 115/50
== END 2020-02-01 15:27 | disposition home or self-care (01) | DRG 813 ==
LOC: N.ED 19:25 → N.EDINP 23:28 → SUATTDRO 23:28 → N.3E 01-29 00:13
PROVIDERS: ADMIT Internal Medicine; ATTEND Internal Medicine

== ENCOUNTER 2020-02-27 06:13 | Inpatient (IN) ==
[2020-02-21 11:43] LABS: Basophils % 0.4 % (0.0-0.8); Eosinophils # 0.1 10*3/uL (0.0-0.87); Eosinophils % 1.3 % (0.00-10.9); Hemoglobin 10.1 GM/DL (14.0-18.0); Immature Granulocytes % 0.5 %; Immature Granulocytes Absolute 0.05 #; Lymphocytes # 1.5 10*3/uL (1.4-4.0); Lymphocytes % 16.4 % (21.2-54.2); Mean Corpuscular HGB Conc 31.6 GM/DL (32-36); Mean Corpuscular Volume 85.6 FL (87-102); Monocytes % 8.9 % (1.7-12.7); Neutrophils % 72.5 % (38.7-73.9); Platelet Count 448 T/CUMM (130-400); Red Blood Count 3.74 MC/CUMM (3.8-5.5); Red Cell Distribution Width 13.9 % (9.3-17.3); White Blood Count 9.1 T/CUMM (4-12)
[2020-02-21 11:57] LABS: Calcium 9.2 MG/DL (8.5-10.1); Osmolality,Calculated 290.3 MOS/KG (273-304)
[~2020-02-27 06:13] MED LIST changes: -HEPARIN/NACL 0.9% 2 UNITS/ML 500 ML IV ONE; +LIDOCAINE 2% 5 ML VIAL ONE; +MIDAZOLAM 2 MG/2 ML VIAL ONE; -NITROGLYCERIN DRIP 50 MG/250 ML BOTTLE IV ONE; -PHENYLEPHRINE DRIP 20 MG/250 ML PREMIX IV ONE; +ROCURONIUM 50 MG/5 ML VIAL IV ONE; -ceFAZolin 1,000 MG in SYRINGE 1 EACH IV ONE; +fentaNYL 100 MCG/2 ML VIAL ONE; +propofoL 200 MG/20 ML VIAL IV ONE
[2020-02-27] MEDS ORDERED: ALVIMOPAN 12 MG CAPSULE PO ONE (06:30)
[2020-02-27] MEDS ORDERED: BUPIVACAINE MPF 0.25% 30 ML VIAL ONE (06:30)
[2020-02-27] MEDS ORDERED: ERTAPENEM 1,000 MG in SODIUM CHLORIDE 0.9% 100 ML IV ONE (06:30)
[2020-02-27] MEDS ORDERED: LACTATED RINGERS 1,000 ML IV SCH (07:00)
[2020-02-27] MEDS ORDERED: ETOMIDATE 40 MG/20 ML VIAL IV ONE (07:34)
[2020-02-27] MEDS ORDERED: PHENYLEPHRINE 1 MG/10 ML SYRINGE IV ONE (07:47)
[2020-02-27] MEDS ORDERED: ePHEDrine 50 MG/ML VIAL ONE (08:00)
[2020-02-27] MEDS ORDERED: ALBUMIN 5% 12.5 GM/250 ML VIAL IV ONE ×2 (08:17→08:46)
[2020-02-27] MEDS ORDERED: PHENYLEPHRINE 10 MG/1 ML VIAL IV ONE (08:24)
[2020-02-27] MEDS ORDERED: SODIUM CHLORIDE 0.9% 250 ML IV ONE (08:24)
[2020-02-27] MEDS ORDERED: ROCURONIUM 50 MG/5 ML VIAL IV ONE (08:57)
[2020-02-27] MEDS ORDERED: GLYCOPYRROLATE 0.4 MG/2 ML VIAL ONE (09:06)
[2020-02-27] MEDS ORDERED: ONDANSETRON 4 MG/2 ML VIAL ONE (09:06)
[2020-02-27] MEDS ORDERED: NEOSTIGMINE 10 MG/10 ML VIAL ONE (09:06)
[2020-02-27] MEDS ORDERED: ACETAMINOPHEN 1,000 MG/100 ML VIAL IV ONE (09:11)
[2020-02-27] MEDS ORDERED: SODIUM CHLORIDE 0.9% 1,000 ML IV ONE (09:21)
[2020-02-27] MEDS ORDERED: TISSUE ADHESIVE 1 EACH APPLICATOR TOP ONE (09:33)
[2020-02-27] MEDS ORDERED: SEVOFLURANE 1 UNIT/15 MINUTE INH ONE (10:11)
[2020-02-27] MEDS ORDERED: ONDANSETRON 4 MG/2 ML VIAL IV PRN (10:44)
[2020-02-27] MEDS: LACTATED RINGERS 1,000 ML IV SCH ×2 (11:00→21:40)
[2020-02-27] MEDS ORDERED: GLUCAGON 1 MG VIAL IM PRN (11:16)
[2020-02-27] MEDS ORDERED: DEXTROSE 50% 25 GM/50 ML VIAL IV PRN (11:16)
[2020-02-27] MEDS: INSULIN REGULAR 100 UNIT/ML SUBCUT SCH ×4 (11:20→21:39)
[2020-02-27] MEDS: HYDROmorphone 2 MG/1 ML VIAL IV PRN ×4 (11:25→21:41)
[2020-02-27 11:56] LABS: Basophils % 0.1 % (0.0-0.8); Eosinophils % 0.3 % (0.00-10.9); Hemoglobin 8.7 GM/DL (14.0-18.0); Immature Granulocytes % 0.6 %; Immature Granulocytes Absolute 0.08 #; Lymphocytes # 0.8 10*3/uL (1.4-4.0); Lymphocytes % 6.6 % (21.2-54.2); Mean Corpuscular HGB Conc 32.2 GM/DL (32-36); Mean Corpuscular Volume 84.9 FL (87-102); Mean Platelet Volume 11.2 FL (9.6-12.0); Neutrophils % 90.4 % (38.7-73.9); Platelet Count 316 T/CUMM (130-400); Red Blood Count 3.18 MC/CUMM (3.8-5.5); Red Cell Distribution Width 14.1 % (9.3-17.3); White Blood Count 12.5 T/CUMM (4-12)
[2020-02-27 12:13] LABS: Osmolality,Calculated 288.8 MOS/KG (273-304)
[2020-02-27] MEDS: ASPIRIN EC 81 MG TABLET PO SCH (17:31)
[2020-02-27] MEDS: ONDANSETRON 4 MG/2 ML VIAL IV PRN (21:39)
[2020-02-27] MEDS: ALVIMOPAN 12 MG CAPSULE PO SCH (21:40)
[2020-02-28] MEDS: ENOXAPARIN 40 MG/0.4 ML SYRINGE SUBCUT SCH (05:57)
[2020-02-28] MEDS: HYDROmorphone 2 MG/1 ML VIAL IV PRN ×2 (05:58→18:40)
[2020-02-28 07:03] LABS: Osmolality,Calculated 286.1 MOS/KG (273-304)
[2020-02-28 07:10] LABS: Basophils % 0.3 % (0.0-0.8); Eosinophils % 0.1 % (0.00-10.9); Hematocrit 30.2 VOL% (42.0-52.0); Hemoglobin 9.4 GM/DL (14.0-18.0); Immature Granulocytes % 0.5 %; Immature Granulocytes Absolute 0.05 #; Lymphocytes # 0.7 10*3/uL (1.4-4.0); Lymphocytes % 6.3 % (21.2-54.2); Mean Corpuscular HGB Conc 31.1 GM/DL (32-36); Mean Platelet Volume 11.5 FL (9.6-12.0); Monocytes % 7.5 % (1.7-12.7); Neutrophils % 85.3 % (38.7-73.9); Platelet Count 350 T/CUMM (130-400); Red Blood Count 3.51 MC/CUMM (3.8-5.5); Red Cell Distribution Width 14.4 % (9.3-17.3)
[2020-02-28] MEDS: LACTATED RINGERS 1,000 ML IV SCH ×3 (08:09→22:00)
[2020-02-28] MEDS: INSULIN REGULAR 100 UNIT/ML SUBCUT SCH ×4 (08:21→21:11)
[2020-02-28] MEDS: ALVIMOPAN 12 MG CAPSULE PO SCH ×2 (08:22→21:11)
[2020-02-28] MEDS: lisinopriL 2.5 MG TABLET PO SCH (12:21)
[2020-02-28] MEDS: ASPIRIN EC 81 MG TABLET PO SCH (17:48)
[2020-02-28] MEDS: ONDANSETRON 4 MG/2 ML VIAL IV PRN (18:38)
[2020-02-29] MEDS: LACTATED RINGERS 1,000 ML IV SCH ×2 (04:30→11:10)
[2020-02-29] MEDS: ENOXAPARIN 40 MG/0.4 ML SYRINGE SUBCUT SCH (06:28)
[2020-02-29 07:47] LABS: Basophils % 0.3 % (0.0-0.8); Eosinophils # 0.2 10*3/uL (0.0-0.87); Eosinophils % 1.8 % (0.00-10.9); Hematocrit 25.8 VOL% (42.0-52.0); Hemoglobin 8.1 GM/DL (14.0-18.0); Immature Granulocytes % 0.4 %; Immature Granulocytes Absolute 0.04 #; Lymphocytes % 8.8 % (21.2-54.2); Mean Corpuscular HGB Conc 31.4 GM/DL (32-36); Mean Corpuscular Volume 84.9 FL (87-102); Mean Platelet Volume 11.3 FL (9.6-12.0); Monocytes % 7.5 % (1.7-12.7); Neutrophils % 81.2 % (38.7-73.9); Platelet Count 307 T/CUMM (130-400); Red Blood Count 3.04 MC/CUMM (3.8-5.5); Red Cell Distribution Width 14.5 % (9.3-17.3); White Blood Count 10.9 T/CUMM (4-12)
[2020-02-29] MEDS ORDERED: AMOXICILLIN/CLAV 875 MG TABLET PO SCH (08:00)
[2020-02-29 08:09] LABS: Hypochromasia 1+; Microcytosis 1+; Ovalocytes Slight; Platelet Estimate Adequate
[2020-02-29] MEDS: lisinopriL 2.5 MG TABLET PO SCH (08:15)
[2020-02-29] MEDS: ALVIMOPAN 12 MG CAPSULE PO SCH (08:15)
[2020-02-29] MEDS: INSULIN REGULAR 100 UNIT/ML SUBCUT SCH ×2 (08:15→11:41)
[2020-02-29] MEDS ORDERED: PANTOPRAZOLE 40 MG VIAL IV SCH (10:00)
[2020-02-29] MEDS ORDERED: INSULIN GLARGINE 100 UNIT/ML SUBCUT SCH (10:30)
[2020-02-29] MEDS: HYDROmorphone 2 MG/1 ML VIAL IV PRN (10:36)
[2020-02-29 11:50] VITALS: BP 144/56
[2020-02-29] MEDS ORDERED: SODIUM CHLORIDE 0.45% 1,000 ML IV SCH (13:30)
== END 2020-02-29 15:33 | disposition home or self-care (01) | DRG 330 ==
LOC: N.OR 06:13 → N.SDSINP 06:14 → N.3E 12:30
PROVIDERS: ADMIT Surgery; ATTEND Surgery

== ENCOUNTER 2020-03-13 16:52 | Observation (INO) ==
[2020-03-13] MEDS ORDERED: LACTATED RINGERS 1,000 ML IV ONE (18:43)
[2020-03-13] MEDS ORDERED: DEXTROSE 50% 25 GM/50 ML VIAL IV PRN (18:51)
[2020-03-13] MEDS ORDERED: GLUCAGON 1 MG VIAL IM PRN (18:51)
[2020-03-13] MEDS ORDERED: ACETAMINOPHEN 325 MG TABLET PO PRN (18:56)
[2020-03-13] MEDS ORDERED: ONDANSETRON 4 MG/2 ML VIAL IV PRN (18:56)
[2020-03-13] MEDS ORDERED: PROMETHAZINE 25 MG/1 ML VIAL IM PRN (18:56)
[2020-03-13] MEDS ORDERED: LACTATED RINGERS 1,000 ML IV SCH (21:00)
[2020-03-13] MEDS: INSULIN REGULAR 100 UNIT/ML SUBCUT SCH (21:10)
[2020-03-14 06:24] LABS: Basophils % 0.3 % (0.0-0.8); Eosinophils # 0.1 10*3/uL (0.0-0.87); Eosinophils % 1.6 % (0.00-10.9); Hematocrit 28.5 VOL% (42.0-52.0); Immature Granulocytes % 0.6 %; Immature Granulocytes Absolute 0.05 #; Lymphocytes # 1.3 10*3/uL (1.4-4.0); Lymphocytes % 15.7 % (21.2-54.2); Mean Corpuscular HGB Conc 31.6 GM/DL (32-36); Mean Corpuscular Volume 81.2 FL (87-102); Mean Platelet Volume 11.6 FL (9.6-12.0); Monocytes % 12.9 % (1.7-12.7); Neutrophils % 68.9 % (38.7-73.9); Platelet Count 477 T/CUMM (130-400); Red Blood Count 3.51 MC/CUMM (3.8-5.5); Red Cell Distribution Width 14.9 % (9.3-17.3)
[2020-03-14 06:46] LABS: Calcium 8.8 MG/DL (8.5-10.1)
[2020-03-14] MEDS: INSULIN REGULAR 100 UNIT/ML SUBCUT SCH ×2 (08:30→12:30)
[2020-03-14] MEDS ORDERED: ENOXAPARIN 40 MG/0.4 ML SYRINGE SUBCUT SCH (09:00)
[2020-03-14] MEDS ORDERED: PANTOPRAZOLE 40 MG TABLET PO SCH (09:00)
[2020-03-14 09:12] LABS: Alanine Aminotransferase 28 U/L (16-61); Albumin 2.5 G/DL (3.4-5.0); Alkaline Phosphatase 196 U/L (45-117); Aspartate Amino Transferase 25 U/L (0-37); Bilirubin,Direct < 0.100 MG/DL (0.0-0.20); Bilirubin,Indirect 0.3 MG/DL (0.0-1.0); Total Protein 6.9 G/DL (6.4-8.3)
[2020-03-14 11:30] VITALS: BP 153/53
== END 2020-03-14 16:07 | disposition home or self-care (01) ==
LOC: N.3E
PROVIDERS: ADMIT Surgery; ATTEND Surgery

== ENCOUNTER 2021-05-05 13:51 | Inpatient (IN) ==
[2021-05-05 17:54] LABS: Basophils % 0.2 % (0.0-0.8); Eosinophils % 0.2 % (0.00-10.9); Hematocrit 51.1 VOL% (42.0-52.0); Hemoglobin 17.1 GM/DL (14.0-18.0); Immature Granulocytes % 0.8 %; Immature Granulocytes Absolute 0.04 #; Lymphocytes # 1.2 10*3/uL (1.4-4.0); Lymphocytes % 23.4 % (21.2-54.2); Mean Corpuscular HGB Conc 33.5 GM/DL (32-36); Mean Corpuscular Volume 88.7 FL (87-102); Mean Platelet Volume 13.8 FL (9.6-12.0); Monocytes % 17.2 % (1.7-12.7); Neutrophils % 58.2 % (38.7-73.9); Platelet Count 101 T/CUMM (130-400); Red Blood Count 5.76 MC/CUMM (3.8-5.5); Red Cell Distribution Width 13.1 % (9.3-17.3)
[2021-05-05 17:55] LABS: Bilirubin,Urine Negative (Negative); Blood, Urine Negative (Negative); Glucose,Urine (UA) 150 mg/dL (Negative); Hyaline Casts,Urine 20 /LPF (0-3); Ketones,Urine 5 mg/dL (Negative); Mucus,Urine Occasional /LPF (Occasional); Nitrite,Urine Negative (Negative); Protein,Urine 100 MG/DL; RBC,Urine 12 /HPF (0-4); Squamous Epithelial Cell,Urine Occasional /HPF (0-10); Urine Appearance CLEAR (Clear); Urine Color Amber (Yellow); Urine Urobilinogen < 2.0 EU/DL (<2.0)
[2021-05-05 18:10] LABS: Albumin 3.2 G/DL (3.4-5.0); Bilirubin,Total 0.4 MG/DL (0.20-1.00); Calcium 9.3 MG/DL (8.5-10.1); Osmolality,Calculated 280.1 MOS/KG (273-304); Potassium 4.2 MMOL/L (3.5-5.1); Total Protein 7.7 G/DL (6.4-8.2)
[2021-05-05] MEDS ORDERED: DEXTROSE 50% 25 GM/50 ML VIAL IV PRN (19:08)
[2021-05-05] MEDS ORDERED: GLUCAGON 1 MG VIAL IM PRN ×2 (19:08)
[2021-05-05 19:21] LABS: Lymphocytes 12 % (20-55); Segmented Neutrophils 69 % (50-85); Total Cells Counted 100
[2021-05-05 19:22] LABS: Reactive Lymphocytes Few
[2021-05-05 19:23] LABS: Platelet Estimate Decreased
[2021-05-05] MEDS ORDERED: DEXTROSE 10% 25 GM/250 ML BAG IV PRN (20:24)
[2021-05-05] MEDS ORDERED: INSULIN NPH/REGULAR 70/30 100 UNIT/ML SUBCUT SCH (21:00)
[2021-05-05] MEDS: SODIUM CHLORIDE 0.9% 1,000 ML IV SCH (21:07)
[2021-05-05] MEDS: FAMOTIDINE 20 MG TABLET PO SCH (21:07)
[2021-05-05] MEDS: HEPARIN 5,000 UNIT/1 ML VIAL SUBCUT SCH (21:07)
[2021-05-05] MEDS: ASCORBIC ACID 500 MG TABLET PO SCH (21:08)
[2021-05-05] MEDS: INSULIN LISPRO 100 UNIT/ML SUBCUT SCH (21:23)
[2021-05-06] MEDS ORDERED: DEXTROSE 10% 250 ML BAG IV PRN
[2021-05-06 05:29] LABS: Basophils % 0.2 % (0.0-0.8); Eosinophils % 0.2 % (0.00-10.9); Hematocrit 49.3 VOL% (42.0-52.0); Hemoglobin 16.1 GM/DL (14.0-18.0); Immature Granulocytes % 0.8 %; Immature Granulocytes Absolute 0.04 #; Lymphocytes # 1.3 10*3/uL (1.4-4.0); Lymphocytes % 26.4 % (21.2-54.2); Mean Corpuscular HGB Conc 32.7 GM/DL (32-36); Mean Platelet Volume 12.5 FL (9.6-12.0); Monocytes % 15.2 % (1.7-12.7); Neutrophils % 57.2 % (38.7-73.9); Platelet Count 101 T/CUMM (130-400); Red Blood Count 5.42 MC/CUMM (3.8-5.5); Red Cell Distribution Width 13.2 % (9.3-17.3)
[2021-05-06 05:52] LABS: Calcium 8.4 MG/DL (8.5-10.1); Ferritin 341.1 ng/mL (26-388); Osmolality,Calculated 284.1 MOS/KG (273-304); Potassium 5.1 MMOL/L (3.5-5.1); Risk Ratio 5.85; VLDL Cholesterol 37.8 MG/DL
[2021-05-06] MEDS ORDERED: lisinopriL 2.5 MG TABLET PO SCH (09:00)
[2021-05-06] MEDS ORDERED: CHOLECALCIFEROL 400 UNIT TABLET PO SCH (09:00)
[2021-05-06] MEDS: HEPARIN 5,000 UNIT/1 ML VIAL SUBCUT SCH (09:30)
[2021-05-06] MEDS: INSULIN LISPRO 100 UNIT/ML SUBCUT SCH ×3 (09:30→14:15)
[2021-05-06] MEDS: FAMOTIDINE 20 MG TABLET PO SCH (09:30)
[2021-05-06] MEDS ORDERED: ASCORBIC ACID 500 MG TABLET PO ONE (10:00)
[2021-05-06] MEDS: ASCORBIC ACID 500 MG TABLET PO SCH (10:31)
[2021-05-06] MEDS: SODIUM CHLORIDE 0.9% 1,000 ML IV SCH (11:23)
[2021-05-06 15:40] VITALS: BP 104/57
[2021-05-06] MEDS ORDERED: ASPIRIN EC 81 MG TABLET PO SCH (17:00)
[2021-05-07] MEDS ORDERED: ROSUVASTATIN 10 MG TABLET PO SCH (09:00)
== END 2021-05-06 15:25 | disposition home or self-care (01) | DRG 178 ==
LOC: EDUNIT# → EDBD → N.ED 13:51 → N.EDINP 19:08
PROVIDERS: ADMIT Internal Medicine; ATTEND Internal Medicine

== ENCOUNTER 2021-08-04 06:57 | Inpatient (IN) ==
[2021-07-29 15:32] LABS: Basophils % 0.6 % (0.0-0.8); Eosinophils # 0.2 10*3/uL (0.0-0.87); Eosinophils % 2.9 % (0.00-10.9); Hematocrit 44.4 VOL% (42.0-52.0); Hemoglobin 14.7 GM/DL (14.0-18.0); Immature Granulocytes % 0.4 %; Immature Granulocytes Absolute 0.03 #; Lymphocytes # 1.6 10*3/uL (1.4-4.0); Lymphocytes % 23.1 % (21.2-54.2); Mean Corpuscular HGB Conc 33.1 GM/DL (32-36); Mean Corpuscular Volume 91.9 FL (87-102); Mean Platelet Volume 13.1 FL (9.6-12.0); Monocytes # 0.7 10*3/uL (0.11-0.8); Monocytes % 9.3 % (1.7-12.7); Neutrophils % 63.7 % (38.7-73.9); Platelet Count 182 T/CUMM (130-400); Red Blood Count 4.83 MC/CUMM (3.8-5.5); Red Cell Distribution Width 13.6 % (9.3-17.3)
[2021-07-29 15:39] LABS: INR 0.9; PT Patient Result 10.5 SECS (10.5-12.0)
[2021-07-29 15:50] LABS: Albumin 3.6 G/DL (3.4-5.0); Bilirubin,Total 0.6 MG/DL (0.20-1.00); Calcium 9.5 MG/DL (8.5-10.1); Osmolality,Calculated 286.8 MOS/KG (273-304); Potassium 5.1 MMOL/L (3.5-5.1); Total Protein 6.9 G/DL (6.4-8.2)
[~2021-08-04 06:57] MED LIST changes: +HEPARIN/NACL 0.9% 2 UNITS/ML 1,000 UNIT/500 ML BAG IV ONE; -LIDOCAINE 2% 5 ML VIAL ONE; -MIDAZOLAM 2 MG/2 ML VIAL ONE; +NITROGLYCERIN DRIP 50 MG/250 ML BOTTLE IV ONE; +PHENYLEPHRINE DRIP 20 MG/250 ML PREMIX IV ONE; -ROCURONIUM 50 MG/5 ML VIAL IV ONE; -fentaNYL 100 MCG/2 ML VIAL ONE; -propofoL 200 MG/20 ML VIAL IV ONE
[2021-08-04] MEDS ORDERED: LIDOCAINE 2% 5 ML VIAL ONE (07:19)
[2021-08-04] MEDS ORDERED: fentaNYL 100 MCG/2 ML VIAL ONE (07:19)
[2021-08-04] MEDS ORDERED: SEVOFLURANE 1 UNIT/15 MINUTE INH ONE ×2 (07:19→10:07)
[2021-08-04] MEDS ORDERED: propofoL 200 MG/20 ML VIAL IV ONE (07:19)
[2021-08-04] MEDS ORDERED: ROCURONIUM 50 MG/5 ML VIAL IV ONE (07:19)
[2021-08-04] MEDS ORDERED: SODIUM CHLORIDE 0.9% 1,000 ML IV ONE (07:19)
[2021-08-04] MEDS ORDERED: KETAMINE 500 MG/10 ML VIAL ONE (07:20)
[2021-08-04] MEDS ORDERED: DEXTROSE 50% 25 GM/50 ML SYRINGE IV ONE ×2 (07:25→07:26)
[2021-08-04] MEDS ORDERED: ACETAMINOPHEN 500 MG TABLET PO ONE (07:44)
[2021-08-04] MEDS ORDERED: FAMOTIDINE 20 MG TABLET PO ONE (07:44)
[2021-08-04] MEDS ORDERED: LIDOCAINE 1% 50 ML VIAL ONE (08:30)
[2021-08-04] MEDS ORDERED: HEPARIN 5,000 UNIT/1 ML VIAL ONE (08:30)
[2021-08-04] MEDS ORDERED: LACTATED RINGERS 1,000 ML IV SCH (08:30)
[2021-08-04] MEDS ORDERED: SUCCINYLCHOLINE 200 MG/10 ML VIAL ONE (09:00)
[2021-08-04] MEDS ORDERED: DEXAMETHASONE 4 MG/1 ML VIAL ONE (09:27)
[2021-08-04] MEDS ORDERED: HEPARIN 10,000 UNIT/10 ML VIAL ONE (09:27)
[2021-08-04] MEDS ORDERED: ONDANSETRON 4 MG/2 ML VIAL ONE (09:27)
[2021-08-04] MEDS ORDERED: GLYCOPYRROLATE 0.4 MG/2 ML VIAL ONE (09:33)
[2021-08-04] MEDS ORDERED: SUGAMMADEX 200 MG/2 ML VIAL IV ONE (09:41)
[2021-08-04] MEDS ORDERED: PROTAMINE SULFATE 50 MG/5 ML VIAL IV ONE (09:56)
[2021-08-04] MEDS ORDERED: GLUCAGON 1 MG VIAL IM PRN (10:17)
[2021-08-04] MEDS ORDERED: HYDROmorphone 1 MG/1 ML SYRINGE IV PRN ×2 (10:17)
[2021-08-04] MEDS ORDERED: PROMETHAZINE 25 MG/1 ML VIAL IM PRN (10:17)
[2021-08-04] MEDS ORDERED: NALOXONE 0.4 MG/ML VIAL IV PRN (10:17)
[2021-08-04] MEDS ORDERED: oxyCODONE/ACETAMINOPHEN 5-325 MG TABLET PO PRN ×2 (10:17)
[2021-08-04] MEDS ORDERED: PHENYLEPHRINE DRIP 40 MG/250 ML PREMIX IV SCH (10:30)
[2021-08-04] MEDS: LACTATED RINGERS 1,000 ML IV SCH ×3 (11:07→23:55)
[2021-08-04] MEDS ORDERED: DEXTROSE 10% 250 ML BAG IV PRN (11:08)
[2021-08-04 11:11] VITALS: BP 115/49
[2021-08-04] MEDS: PHENYLEPHRINE DRIP 40 MG/250 ML PREMIX IV PRN ×2 (11:29→21:30)
[2021-08-04] MEDS: NITROPRUSSIDE 100 MG in DEXTROSE 5% 250 ML IV SCH (12:37)
[2021-08-04] MEDS: ONDANSETRON 4 MG/2 ML VIAL IV PRN ×2 (12:48→16:41)
[2021-08-04] MEDS: INSULIN REGULAR 100 UNIT/ML SUBCUT SCH ×3 (13:33→23:40)
[2021-08-04] MEDS ORDERED: ASPIRIN EC 81 MG TABLET PO SCH (17:00)
[2021-08-05] MEDS: LACTATED RINGERS 1,000 ML IV SCH ×2 (02:00→06:11)
[2021-08-05] MEDS: PHENYLEPHRINE DRIP 40 MG/250 ML PREMIX IV PRN (03:42)
[2021-08-05] MEDS: INSULIN REGULAR 100 UNIT/ML SUBCUT SCH ×3 (05:47→15:27)
[2021-08-05] MEDS ORDERED: INSULIN ASPART PROTAMINE/ASPART 70/30 100 UNIT/ML SUBCUT SCH (09:00)
[2021-08-05] MEDS ORDERED: ASPIRIN EC 81 MG TABLET PO SCH (09:00)
[2021-08-05] MEDS ORDERED: CLOPIDOGREL 75 MG TABLET PO SCH (09:00)
[2021-08-05] MEDS ORDERED: INSULIN NPH/REGULAR 70/30 100 UNIT/ML SUBCUT SCH (09:30)
[2021-08-05] MEDS ORDERED: LORazepam 1 MG TABLET PO ONE (11:08)
[2021-08-05] MEDS: NITROPRUSSIDE 100 MG in DEXTROSE 5% 250 ML IV SCH (11:35)
== END 2021-08-05 15:20 | disposition home or self-care (01) | DRG 39 ==
LOC: N.OR 06:57 → N.SDSINP 06:58 → EDSTATUS 08:30 → N.SDSINP 10:18 → N.ICU 11:05
PROVIDERS: ADMIT Surgery; ATTEND Surgery